=== PATIENT | female | born 2005 | race Hispanic/Latino ===

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

== ENCOUNTER 2024-03-18 01:51 | Emergency (ER) | payer OTHER ==
--- OUTSIDE RECORDS SUMMARY | 2024-03-18 01:55 | XMS REPORT | Continuity of Care Document ---
Author Name Unknown Address [address] [facility] [address] [place] [address] [facility] Address [address] [facility] [address] [place] [address] Care Team Providers Care Banking Attorney Name Role Phone Sharda Becerra CNM Primary Care Physician + Sharda Becerra CNM Attending Clinician [phone] SHARDA BECERRA Attending Clinician Unavaila USAMA Crawford Attending Clinician Unavailable Visit, Andrésshanel Nurse Attending Clinician Unava ilable BRADLEY OCHOA Attending Clinician Unavailable BRADLEY OCHOA Attending Clinician Unavailable BRADLEY OCHOA Attending Clinician Unavailable Ayaz Lambert MD Attending Clinician + Bradley Ochoa MD Attending Clinician [phone] Faculty, Ob Attending Clinician Unavailable Latosha Pereira MD Attending Clinician [phone] Osvaldo Fernandez MD Attending Clinician [phone] Delmi Martínez Attending Clinician + DELMI SERRANO Attending Clinician Unavail able Lab, [facility] Attending Clinician Unavailable Sharda Becerra CNM Attending Clinician [phone] Ultrasound, Ang-Mfm Attending Clinician Unavaila ble Perry Baldwin MD, Primo Attending Clinician + PRIMO YOUNG Attending Clinician Jasmyne Bernard MD Attending Clinician [phone] JASMYNE FAJARDO Attending Clinician Unavailable JASMYNE FAJARDO Attending Clinician Unavailable Doctor Unassigned, [place] Attending Clinician U BRADLEY Steve Admitting Clinician Unavailable Bradley Ochoa MD Admitting Clinician [phone] Payers Payer Name Policy Type Policy Number Effective Date Expirati on Date Source Problems Condition Name Condition Details Condition Category Status Onset Date Resolution Date Last Treatment Date Treating Clinician Comments Source Anemia, Anemia, Disease Active 2023-03 00:00: 00 [facility] acute hospital Status post section Status post section Disease Active 2023-03 00:00: 00 General acute hospital Pre-eclamp noemi, delivered Pre-eclamp noemi, delivered Disease Active 2023-03 0-15 00:00: 00 [facility] acute hospital Elevated blood pressure reading without diagnosis of hypertensi on Elevated blood pressure reading without diagnosis of hypertensi on Disease Resolve d 2023-03 0-15 00:00: 00 2024-02-06 00:00:00 2024-02-06 09:22:53 General acute hospital 36 weeks gestation of 36 weeks gestation of Disease Resolve d 2023-03 0-15 00:00: 00 2024-02-06 00:00:00 2024-02-06 09:22:56 General acute hospital Elevated blood pressure affecting in third trimester, antepartum Elevated blood pressure affecting in third trimester, antepartum Disease Resolve d 2023-03 0-15 00:00: 00 2024-02-06 00:00:00 2024-02-06 09:22:58 General acute hospital Abnormal maternal glucose tolerance, antepartum Abnormal maternal glucose tolerance, antepartum Disease Resolve d 2023-0 8-08 00:00: 00 2024-02-06 00:00:00 2024-02-06 09:22:52 General acute hospital Heartburn during in second trimester Heartburn during in second trimester Disease Resolve d 8-07 00:00: 00 2024-02-06 00:00:00 2024-02-06 09:22:49 General acute hospital Blood product declined Blood product declined Disease Resolve d 8-07 00:00: 00 2024-02-06 00:00:00 2024-02-06 09:22:51 General acute hospital Obesity affecting Obesity affecting Disease Resolve d 3-08 00:00: 00 2024-02-06 00:00:00 2024-02-06 09:22:47 General acute hospital Splenic laceration Splenic laceration Disease Resolve d 1- 00:00: 00 2023-07-11 00:00:00 2023-07-11 21:15:30 General acute hospital Allergies, Adverse Reactions, Alerts Allergy Name Allergy Type Status Severity Reaction(s) Onset Date Inactive Date Treating Clinician Comments Source NO KNOWN ALLERGIE S Drug Class Active General acute hospital Social History Social Habit Start Date Stop Date Quantity Comments Source ASSERTION 2023-05-15 00:00:00 [facility] Alcoholic beverage intake 2024-02-06 00:00:00 2024-02-06 00:00:00 Ex-drinker (finding) [facility] Alcohol intake 2023-07-11 00:00:00 2023-07-11 00:00:00 Ex-drinker (finding) [facility] Tobacco use and exposure 2023-06-06 00:00:00 2023-06-06 00:00:00 Smokeless tobacco non-user [facility] History of Social function 2023-06-06 00:00:00 2023-06-06 00:00:00 [facility] Sex assigned at 2004 00:00:00 2004 00:00:00 [facility] Smoking Status Start Date Stop Date Source Tobacco smoking consumption unknown [facility] Never smoked tobacco General acute hospital Medications Ordered Medication Name Filled Medication Name Start Date Stop Date Current Medication? Ordering Clinician Indication Dosage Frequency Signature (SIG) Comments Components Source SERTraline (ZOLOFT) 50 mg tablet 2023-03 00:00: 00 03-08 05:59 :00 Yes [id number] Take 1 tablet by mouth daily for 4 days, THEN 2 tablets daily for 26 days. General acute hospital human papillomav vac,9-caitie(P F) (GARDASIL-9 ) syringe 0.5 mL 2023-03 03:23: 35 Yes .5mL 0.5 mL, Intramuscu lar, ONCE-PRIOR TO DISCHARGE, 1 dose, Starting on 01/18/24 at 2223, Until Discontinu ed, Routine, Give vaccine prior to discharge General acute hospital flu vac ts 2023(6 ms up)CD(PF) (FLUCELVAX TRI (PF)) IM injection 0.5 mL 2023-03 03:23: 24 Yes .5mL 0.5 mL, Intramuscu lar, ONCE-PRIOR TO DISCHARGE, 1 dose, Starting on 01/18/24 at 2223, Until Discontinu ed, Routine, Give vaccine prior to discharge General acute hospital [id number] fum-folic 27 mg iron- 1 mg folic tablet 2023-03 00:00: 00 Yes [id number] 1{tbl} Take 1 tablet by mouth in the morning. [facility] acute hospital docusate 100 mg capsule 2023-03 00:00: 00 Yes [id number] 200mg Take 2 capsules by mouth once daily as needed for Constipati on. General acute hospital ferrous sulfate 325 mg (65 mg iron) tablet 2023-03 00:00: 00 Yes [id number] 325mg Take 1 tablet by mouth in the morning. [facility] acute hospital ibuprofen 800 mg tablet 2023-03 00:00: 00 Yes [id number] 800mg Take 1 tablet by mouth every 8 (eight) hours as needed (pain). Take with food or milk. [facility] acute hospital acetaminoph en 500 mg tablet 2023-03 00:00: 00 Yes [id number] 1000mg Take 2 tablets by mouth every 8 (eight) hours as needed for Pain. [facility] acute hospital oxyCODONE 5 mg immediate release tablet 2023-03 00:00: 00 01-26 04:59 :00 Yes [id number] 5mg Take 1 tablet by mouth every 6 (six) hours as needed (pain) for up to 7 days. Indication s: acute pain General acute hospital docusate (COLACE) capsule 200 mg 2023-03 14:00: 00 01-18 19:50 :03 No 200mg 200 mg, Oral, DAILY, First dose on Fri01/17/24 at 0900, Until Discontinu ed, Routine [facility] simethicone (GAS RELIEF (SIMETHICON E)) chewable tablet 160 mg 2023-03 01:00: 00 01-18 19:50 :03 No 160mg 160 mg, Oral, TID, First dose on Fri01/16/24 at 2000, Until Discontinu ed, Routine [facility] ibuprofen (IBU) tablet 800 mg 2023-03 23:30: 00 01-18 19:50 :03 No 800mg 800 mg, Oral, Q8HA1, First dose on Fri01/16/24 at 1830, Until Discontinu ed, Routine [facility] acute hospital acetaminoph en (TYLENOL) tablet 1,000 mg 2023-03 21:30: 00 01-18 19:50 :03 No 1000mg 1,000 mg, Oral, Q8H, First dose on Fri01/16/24 at 1630, Until Discontinu ed, Routine [facility] rho(D) immune globulin (RHOPHYLAC) injection 300 mcg 2023-03 21:17: 08 01-18 19:50 :03 No 300ug [facility] acute hospital oxyCODONE immediate release tablet 5 mg 2023-03 21:17: 03 01-18 19:50 :03 No 5mg 5 mg, Oral, Q6HPRN, Starting on Fri01/16/24 at 1617, Until Fri01/19/24 at 1450, Routine, Pain (scale 7-10), 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 approving Restricted medication : MARY GRACE SCOTT General acute hospital diphenhydrA MINE (BENADRYL) injection 25 mg 2023-03 21:17: 03 01-18 19:50 :03 No 25mg [facility] acute hospital diphenhydrA MINE (BENADRYL) tablet 25 mg 2023-03 21:17: 03 01-18 19:50 :03 No 25mg [facility] acute hospital ondansetron (ZOFRAN (PF)) injection 4 mg 2023-03 21:17: 03 01-18 19:50 :03 No 4mg General acute hospital bisacodyL (DULCOLAX) suppository 10 mg 2023-03 21:17: 03 01-18 19:50 :03 No 10mg [facility] acute hospital magnesium hydroxide (MILK OF MAGNESIA) 400 mg/5 mL suspension 30 mL 2023-03 21:17: 03 01-18 19:50 :03 No 30mL 30 mL, Oral, QDAILYPRN, Starting on Fri01/16/24 at 1617, Until Fri01/19/24 at 1450, Routine, Constipati on General acute hospital lactated ringers IV infusion 1,000 mL 2023-03 21:17: 03 01-18 19:50 :03 No 1000mL [facility] acute hospital naloxone (NARCAN) injection 0.2 mg 2023-03 19:35: 22 Yes .2mg 0.2 mg, Intramuscu lar, Q3HPRN, Starting on Fri01/16/24 at 1435, Until Discontinu ed, Routine, Itching, PACU [facility] acute hospital diphenhydrA MINE (BENADRYL) tablet 25 mg 2023-03 19:35: 22 Yes 25mg 25 mg, Oral, Q4HPRN, Starting on Fri01/16/24 at 1435, Until Discontinu ed, Routine, Itching, PACU [facility] acute hospital ketorolac (TORADOL) injection 30 mg 2023-03 19:35: 21 01-20 04:59 :00 Yes 30mg 30 mg, Slow IV Push, Q6HPRN, 4 doses, Starting on Fri01/16/24 at 1435, Until Fri01/20/24 at 2359, Routine, Pain (scale 1-3), PACU [facility] acute hospital metroNIDAZO LE in NaCl (iso-os) (FLAGYL I.V.) RTU IV infusion 500 mg 2023-03 18:30: 00 01-17 06:15 :39 No 500mg 500 mg, IV Infusion, Q12H ABX, First dose on Fri01/16/24 at 1330, Until Discontinu ed, Administer over 60 Minutes, 100 mL, Reason for Anti-Infec tive: Surgical Prophylaxi s, 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, Duration of therapy: within 24 hours of surgery [facility] acute hospital acetaminoph en (TYLENOL) tablet 1,000 mg 2023-03 03:45: 00 01-15 03:47 :00 No 1000mg 1,000 mg, Oral, ONCE, 1 dose, On Fri01/15/24 at 2245, STAT [facility] acute hospital ropivacaine 0.2 % (NAROPIN (PF)) epidural infusion 2023-03 19:39: 00 Yes Epidural, CONTINUOUS PRN, Starting on Fri01/15/24 at 1439, Until Discontinu ed, Routine, Intra-op [facility] acute hospital oxytocin (PITOCIN) 30 units in NS 500 mL IV infusion 2023-03 19:38: 20 01-15 21:17 :06 No 2mU/min at 2-40 mL/hr, IV Infusion, TITRATE, Starting on Fri01/15/24 at 1438, Until Fri01/16/24 at 1617, PRINCESS General acute hospital lidocaine-e pinephrine (XYLOCAINE W/EPINEPHRI NE) 1.5 %-1:200,000 injection 2023-03 19:33: 00 Yes Epidural, ONCE INTRA PROCEDURE, Starting on Fri01/15/24 at 1433, Until Discontinu ed, Routine, Intra-op [facility] acute hospital lidocaine 1% (XYLOCAINE) 100 mg/10 mL (1 %) injection 2023-03 19:30: 00 Yes Infiltrati on, ONCE INTRA PROCEDURE, Starting on Bonnie 01/15/24 at 1430, Until Discontinu ed, Routine, Intra-op [facility] sodium citrate-cit ruddy acid (BICITRA) 500-334 mg/5 mL solution 30 mL 2023-03 18:38: 08 01-14 19:32 :00 No 30mL 30 mL, Oral, PRE-PROCED URE ONCE, 1 dose, Starting on Bonnie 01/15/24 at 1338, Until Bonnie 01/15/24 at 1432, Routine, Surgery/Pr ocedure [facility] lactated ringers IV infusion 500 mL 2023-03 18:38: 08 01-14 20:04 :39 No 500mL at 999 mL/hr, 500 mL, IV Infusion, PRN - SEE INSTRUCTIO NS, 1 dose, Starting on Bonnie 01/15/24 at 1338, Until Bonnie 01/15/24 at 1504, Routine [facility] morphine (2 mg/mL) injection 4 mg 2023-03 13:15: 00 01-14 12:32 :00 No 4mg 4 mg, Slow IV Push, ONCE, 1 dose, On Bonnie 01/15/24 at 0815, Routine [facility] diphenhydrA MINE (BENADRYL) tablet 25 mg 2023-03 09:15: 00 01-14 08:33 :00 No 25mg 25 mg, Oral, ONCE, 1 dose, On Bonnie 01/15/24 at 0415, Routine [facility] morphine (2 mg/mL) injection 4 mg 2023-03 08:30: 00 01-14 07:39 :00 No 4mg 4 mg, Slow IV Push, ONCE, 1 dose, On Bonnie 01/15/24 at 0330, Routine [facility] sodium citrate-cit ruddy acid (BICITRA) 500-334 mg/5 mL solution 30 mL 2023-03 05:39: 30 01-15 17:17 :00 No 30mL 30 mL, Oral, PRE-PROCED URE ONCE, 1 dose, Starting on Fri01/15/24 at 0039, Until Fri01/16/24 at 1217, Routine, Surgery/Pr ocedure General acute hospital D5W-LR IV infusion 1,000 mL 2023-03 0-17 05:39: 30 01-15 21:17 :06 No 1000mL at 1-125 mL/hr, IV Infusion, TITRATE, Starting on Fri01/15/24 at 0039, Until Fri01/16/24 at 1617, Routine General acute hospital [id number] fum-folic () tablet 1 tablet 2023-03 016 14:00: 00 01-15 21:17 :06 No 1{tbl} 1 tablet, Oral, DAILY, First dose on Fri01/14/24 at 0900, Until Discontinu ed, Routine [facility] acute hospital acetaminoph en (TYLENOL) tablet 1,000 mg 2023-03 015 21:44: 49 01-15 21:17 :06 No 1000mg 1,000 mg, Oral, Q6HPRN, Starting on Fri01/13/24 at 1644, Until Fri01/16/24 at 1617, Routine, Pain (scale 1-3) General acute hospital PNV 67-iron ps-folate no.1-dha (VITAFOL ULTRA) 29 mg iron- 1 mg-200 mg Cap 8-20 00:00: 00 Yes [id number] 1{capsu le} Take 1 capsule by mouth in the morning. General acute hospital PNV 67-iron ps-folate no.1-dha (VITAFOL ULTRA) 29 mg iron- 1 mg-200 mg Cap 8-07 00:00: 00 11-17 00:00 :00 No [id number] 1{capsu le} Take 1 capsule by mouth in the morning. General acute hospital famotidine (PEPCID) 20 mg tablet 5-31 00:00: 00 Yes [id number] 20mg Take 1 tablet by mouth in the morning and 1 tablet in the evening. [facility] acute hospital Immunizations Ordered Immunization Name Filled Immunization Name Date Status Comments Source TDAP 2023-11-18 00:00:[address] [facility] TDAP 2023-11-18 00:00:[address] [facility] Meningococcal Oligosaccharide (groups A, C, Y and W-135) conjugate vaccine (MCV4O) 2022-06-21 00:00:00 Completed HPV9 2018-02-02 00:00:00 Completed TDAP 2015-12-19 00:00:00 Completed Influenza Virus Vaccine Quad .5 mL IM 6+ MO (FLUZONE/FLULAVAL/FLU ARIX) 2015-12-19 00:00:00 Completed HPV 2015-12-19 00:00:00 Completed Meningococcal Polysaccharide (groups A, C, Y and W-135) conjugate vaccine (MCV4P) 2015-12-19 00:00:00 Completed Influenza Virus Vaccine Quad .5 mL IM 6+ MO (FLUZONE/FLULAVAL/FLU ARIX) 2015-05-17 00:00:00 Completed DTaP, Unspecified Formulation 2008-09-08 00:00:00 Completed HEPATITIS A 2008-09-08 00:00:00 Completed MMR 2008-09-08 00:00:00 Completed IPV 2008-09-08 00:00:00 Completed Varicella (varivax)(chicken pox) 2008-09-08 00:00:00 Completed DTaP, Unspecified Formulation 2005-09-23 00:00:00 Completed HEPATITIS A 2005-09-23 00:00:00 Completed IPV 2005-09-23 00:00:00 Completed Pneumococcal 7 Conjugate, PCV7 (Prevnar7) 2005-09-03 00:00:00 Completed HIB 4 Dose Schedule 2005-06-24 00:00:00 Completed MMR 2005-06-24 00:00:00 Completed Varicella (varivax)(chicken pox) 2005-06-24 00:00:00 Completed Pediarix (dtap/hep B/ipv) 2005-01-01 00:00:00 Completed HIB 4 Dose Schedule 2005-01-01 00:00:00 Completed Pneumococcal 7 Conjugate, PCV7 (Prevnar7) 2005-01-01 00:00:00 Completed Pediarix (dtap/hep B/ipv) 2004 00:00:00 Completed HIB 4 Dose Schedule 2004 00:00:00 Completed Pneumococcal 7 Conjugate, PCV7 (Prevnar7) 2004 00:00:00 Completed Pediarix (dtap/hep B/ipv) 2004 00:00:00 Completed HIB 4 Dose Schedule 2004 00:00:00 Completed Pneumococcal 7 Conjugate, PCV7 (Prevnar7) 2004 00:00:00 Completed Hep B, Adol or Pedi Dosage 2004 00:00:00 Completed TDAP Unknown Completed [facility] TDAP Unknown Completed [facility] TDAP Unknown Completed [facility] Vital Signs Vital Name Observation Time Observation Value Comments S ource Systolic blood pressure 2024-02-06 15:45:00 128 mm[Hg] [facility] Diastolic blood pressure 2024-02-06 15:45:00 100 mm[Hg] [facility] Heart rate 2024-02-06 15:41:00 84 /min [facility] Body temperature 2024-02-06 15:41:[address] [facility] Respiratory rate 2024-02-06 15:41:00 18 /min [facility] Body height 2024-02-06 15:41:00 154.9 cm [facility] Body weight 2024-02-06 15:41:00 87.232 kg [facility] BMI 2024-02-06 15:41:00 36.34 kg/m2 [facility] Systolic blood pressure 2024-01-22 17:58:00 140 mm[Hg] Manual [facility] Diastolic blood pressure 2024-01-22 17:58:00 90 mm[Hg] Manual [facility] Heart rate 2024-01-22 17:54:00 100 /min [facility] Body temperature 2024-01-22 17:54:[address] [facility] Respiratory rate 2024-01-22 17:54:00 17 /min [facility] Body height 2024-01-22 17:54:00 154.9 cm [facility] Body weight 2024-01-22 17:54:00 86.864 kg [facility] BMI 2024-01-22 17:54:00 36.18 kg/m2 [facility] Systolic blood pressure 2024-01-19 16:36:00 118 mm[Hg] [facility] Diastolic blood pressure 2024-01-19 16:36:00 74 mm[Hg] [facility] Heart rate 2024-01-19 16:36:00 98 /min [facility] Body temperature 2024-01-19 16:36:[address] [facility] Respiratory rate 2024-01-19 16:36:00 20 /min [facility] Oxygen saturation in Arterial blood by Pulse oximetry 2024-01-19 16:36:00 97 /min [facility] Body height 2024-01-13 20:39:00 154.9 cm [facility] Body weight 2024-01-13 20:39:00 96.48 kg [facility] BMI 2024-01-13 20:39:00 40.19 kg/m2 [facility] Systolic blood pressure 2024-01-16 20:30:00 145 mm[Hg] [facility] Diastolic blood pressure 2024-01-16 20:30:00 98 mm[Hg] [facility] Heart rate 2024-01-16 20:30:00 96 /min [facility] Body temperature 2024-01-16 20:30:[address] [facility] Respiratory rate 2024-01-16 20:30:00 20 /min [facility] Oxygen saturation in Arterial blood by Pulse oximetry 2024-01-16 20:30:00 98 /min [facility] Body height 2024-01-13 20:39:00 154.9 cm [facility] Body weight 2024-01-13 20:39:00 96.48 kg [facility] BMI 2024-01-13 20:39:00 40.19 kg/m2 [facility] Systolic blood pressure 2024-01-13 16:13:00 144 mm[Hg] [facility] Diastolic blood pressure 2024-01-13 16:13:00 90 mm[Hg] [facility] Heart rate 2024-01-13 16:08:00 91 /min [facility] Body temperature 2024-01-13 16:08:[address] [facility] Respiratory rate 2024-01-13 16:08:00 18 /min [facility] Body height 2024-01-13 16:08:00 154.9 cm [facility] Body weight 2024-01-13 16:08:00 95.709 kg [facility] BMI 2024-01-13 16:08:00 39.87 kg/m2 [facility] Systolic blood pressure 2023-12-30 15:56:00 138 mm[Hg] [facility] Diastolic blood pressure 2023-12-30 15:56:00 82 mm[Hg] [facility] Heart rate 2023-12-30 15:56:00 92 /min [facility] Body temperature 2023-12-30 15:56:[address] [facility] Respiratory rate 2023-12-30 15:56:00 18 /min [facility] Body height 2023-12-30 15:56:00 154.9 cm [facility] Body weight 2023-12-30 15:56:00 93.072 kg [facility] BMI 2023-12-30 15:56:00 38.77 kg/m2 [facility] Systolic blood pressure 2023-12-16 15:02:00 128 mm[Hg] [facility] Diastolic blood pressure 2023-12-16 15:02:00 89 mm[Hg] [facility] Heart rate 2023-12-16 15:02:00 81 /min [facility] Body temperature 2023-12-16 14:57:[address] [facility] Respiratory rate 2023-12-16 14:57:00 18 /min [facility] Body height 2023-12-16 14:57:00 154.9 cm [facility] Body weight 2023-12-16 14:57:00 84.511 kg [facility] BMI 2023-12-16 14:57:00 35.20 kg/m2 [facility] Systolic blood pressure 2023-12-03 19:45:00 110 mm[Hg] [facility] Diastolic blood pressure 2023-12-03 19:45:00 80 mm[Hg] [facility] Heart rate 2023-12-03 19:36:00 104 /min [facility] Body temperature 2023-12-03 19:36:[address] [facility] Respiratory rate 2023-12-03 19:36:00 19 /min [facility] Body height 2023-12-03 19:36:00 154.9 cm [facility] Body weight 2023-12-03 19:36:00 86.41 kg [facility] BMI 2023-12-03 19:36:00 35.99 kg/m2 [facility] Systolic blood pressure 2023-11-18 16:18:00 132 mm[Hg] [facility] Diastolic blood pressure 2023-11-18 16:18:00 81 mm[Hg] [facility] Heart rate 2023-11-18 16:18:00 101 /min [facility] Body temperature 2023-11-18 16:18:[address] [facility] Respiratory rate 2023-11-18 16:18:00 18 /min [facility] Body height 2023-11-18 16:18:00 154.9 cm [facility] Body weight 2023-11-18 16:18:00 84.641 kg [facility] BMI 2023-11-18 16:18:00 35.26 kg/m2 [facility] Systolic blood pressure 2023-11-04 20:37:00 123 mm[Hg] [facility] Diastolic blood pressure 2023-11-04 20:37:00 82 mm[Hg] [facility] Heart rate 2023-11-04 20:37:00 113 /min [facility] temperature 2023-11-04 20:33:[address] [facility] Respiratory rate 2023-11-04 20:33:00 18 /min [facility] Body height 2023-11-04 20:33:00 154.9 cm [facility] weight 2023-11-04 20:33:00 83.207 kg [facility] BMI 2023-11-04 20:33:00 34.66 kg/m2 [facility] Systolic blood pressure 2023-09-26 15:22:00 133 mm[Hg] [facility] Diastolic blood pressure 2023-09-26 15:22:00 77 mm[Hg] [facility] Heart rate 2023-09-26 15:22:00 87 /min [facility] Body temperature 2023-09-26 15:22:[address] [facility] Respiratory rate 2023-09-26 15:22:00 18 /min [facility] Body height 2023-09-26 15:22:00 154.9 cm [facility] Body weight 2023-09-26 15:22:00 81.421 kg [facility] BMI 2023-09-26 15:22:00 33.92 kg/m2 [facility] Systolic blood pressure 2023-08-29 14:53:00 120 mm[Hg] [facility] Diastolic blood pressure 2023-08-29 14:53:00 80 mm[Hg] [facility] Heart rate 2023-08-29 14:53:00 70 /min [facility] Body temperature 2023-08-29 14:50:[address] [facility] Respiratory rate 2023-08-29 14:50:00 18 /min [facility] Body height 2023-08-29 14:50:00 154.9 cm [facility] Body weight 2023-08-29 14:50:00 82.64 kg [facility] BMI 2023-08-29 14:50:00 34.42 kg/m2 [facility] Systolic blood pressure 2023-08-08 15:13:00 121 mm[Hg] [facility] Diastolic blood pressure 2023-08-08 15:13:00 75 mm[Hg] [facility] Heart rate 2023-08-08 15:13:00 86 /min [facility] Body temperature 2023-08-08 15:13:[address] [facility] Respiratory rate 2023-08-08 15:13:00 16 /min [facility] Body height 2023-08-08 15:13:00 154.9 cm [facility] Body weight 2023-08-08 15:13:00 80.485 kg [facility] BMI 2023-08-08 15:13:00 33.53 kg/m2 [facility] Systolic blood pressure 2023-07-11 15:21:00 119 mm[Hg] [facility] Diastolic blood pressure 2023-07-11 15:21:00 77 mm[Hg] [facility] Heart rate 2023-07-11 15:21:00 85 /min [facility] Body temperature 2023-07-11 15:21:[address] [facility] [facility] Respiratory rate 2023-07-11 15:21:00 16 /min [facility] Body height 2023-07-11 15:21:00 154.9 cm [facility] Body weight 2023-07-11 15:21:00 77.282 kg [facility] BMI 2023-07-11 15:21:00 32.19 kg/m2 [facility] Systolic blood pressure 2023-06-06 14:22:00 124 mm[Hg] [facility] Diastolic blood pressure 2023-06-06 14:22:00 82 mm[Hg] [facility] Heart rate 2023-06-06 14:22:00 83 /min Un[facility] Body temperature 2023-06-06 14:22:[address] [facility] Respiratory rate 2023-06-06 14:22:00 18 /min [facility] Body height 2023-06-06 14:22:00 154.9 cm [facility] Body weight 2023-06-06 14:22:00 77.384 kg [facility] BMI 2023-06-06 14:22:00 32.23 kg/m2 [facility] Body mass index (BMI) [Percentile] Per age and sex 2023-06-06 14:22:00 95.67 % [facility] Procedures Procedure Date / Time Performed Performing Clinician Source CBC WITH DIFF 2024-01-17 09:31:[address] [facility] CBC WITH DIFF 2024-01-17 09:31:[address] [facility] VENOUS CORD GAS 2024-01-16 18:18:[address] [facility] VENOUS CORD GAS 2024-01-16 18:18:[address] [facility] [id number] - [place] ANTEPARTUM CARE DLVR & 2024-01-16 17:20:00 Faculty, Ob [facility] [id number] - [place] OB ANTEPARTUM CARE DLVR & 2024-01-16 17:20:00 Faculty, Ob [facility] CENTRAL NEURAXIAL BLOCK 2024-01-15 19:54:[address] [facility] NON-STRESS TEST 2024-01-14 21:59:[address] [facility] NON-STRESS TEST 2024-01-14 21:59:[address] [facility] HB ABO GROUPING 2024-01-13 21:54:00 Mary Jo Ward [facility] RHO (D) IMMUNE GLOBULIN 2024-01-13 21:54:[address] [facility] HB ABO GROUPING 2024-01-13 21:54:00 Ed Mary Jo [facility] RHO (D) IMMUNE GLOBULIN 2024-01-13 21:54:[address] [facility] SGOT (ASPARTATE AMINO TRANSFER) 2024-01-13 21:12:00 Stone [facility] CREATININE 2024-01-13 21:12:00 Stone [facility] ALANINE AMINO TRANSFERASE(SGPT 2024-01-13 21:12:00 Stone [facility] LACTATE DEHYDROGENASE 2024-01-13 21:12:[address] [facility] URIC ACID 2024-01-13 21:12:00 Stone [facility] CBC WITH DIFF 2024-01-13 21:12:00 Stone [facility] URINALYSIS 2024-01-13 21:12:00 Stone [facility] HEPATITIS B SURFACE ANTIGEN 2024-01-13 21:12:00 Standing Order, [facility] PROTEIN CREAT RATIO URINE RANDOM 2024-01-13 21:12:00 Stone [facility] HIV 1/2 AG-AB WITH REFLEX 2024-01-13 21:12:00 Standing Order, [facility] SYPHILIS IGG/IGM 2024-01-13 21:12:00 Standing Or chase, [facility] SGOT (ASPARTATE AMINO TRANSFER) 2024-01-13 21:12:00 Stone [facility] CREATININE 2024-01-13 21:12:00 Sun [facility] ALANINE AMINO TRANSFERASE(SGPT 2024-01-13 21:12:00 Stone [facility] LACTATE DEHYDROGENASE 2024-01-13 21:12:[address] [facility] URIC ACID 2024-01-13 21:12:00 Stone [facility] CBC WITH DIFF 2024-01-13 21:12:00 Stone, [facility] URINALYSIS 2024-01-13 21:12:00 Stone [facility] HEPATITIS B SURFACE ANTIGEN 2024-01-13 21:12:00 Standing Order, [facility] PROTEIN CREAT RATIO URINE RANDOM 2024-01-13 21:12:00 Stone, [facility] HIV 1/2 AG-AB WITH REFLEX 2024-01-13 21:12:00 Standing Order, Physician [facility] SYPHILIS IGG/IGM 2024-01-13 21:12:00 Standing Or chase, Physician [facility] POCT URINALYSIS 2024-01-13 16:07:[address] [facility] POCT URINALYSIS 2023-12-30 15:57:[address] [facility] POCT URINALYSIS 2023-12-16 15:00:[address] [facility] POCT URINALYSIS 2023-12-03 19:45:[address] [facility] POCT URINALYSIS 2023-11-18 16:20:[address] [facility] TDAP VACCINE, >11 YRS, IM 2023-11-18 16:15:[address] [facility] POCT URINALYSIS 2023-11-04 21:29:[address] [facility] SECOND AND THIRD TRIMESTER ULTRASOUND 2023-09-30 15:35:[address] [facility] POCT URINALYSIS 2023-09-26 15:23:[address] [facility] POCT URINALYSIS 2023-08-29 14:56:[address] [facility] POCT URINALYSIS 2023-08-08 15:51:[address] [facility] FIRST TRIMESTER ULTRASOUND 2023-07-17 16:36:[address] [facility] POCT URINALYSIS 2023-07-11 15:21:[address] [facility] POCT TEST 2023-06-06 14:15:[address] [facility] POCT URINALYSIS W/O SPECIFIC GRAVITY 2023-06-06 14:15:[address] [facility] ASSIGNMENT OF BENEFITS 2023-06-06 14:04:20 Docto r Unassigned, [place] [facility] Encounters Start Date/Time End Date/Time Encounter Type Admission Type Attending Clinicians Care Facility Care Department Encounter ID Source 2024-03-04 00:00:00 2024-03-04 07:00:43 Chandrakant Sharda Becerra [facility] FISH MACHINE FEEDER [facility]ILD [email or web address] 1..840.114 350.1.13.10 4.2.7.2.686 [id number] General acute hospital 2024-01-24 00:00:00 2024-02-28 18:24:24 Patient Secure Sharda Becerra [facility] FISH MACHINE FEEDER [facility] 1..840.114 350.1.13.10 4.2.7.2.686 [id number] General acute hospital 2024-02-17 07:00:00 2024-02-17 07:00:00 Outpatient SHARDA BOLTON [facility] [id number] General acute hospital 2024-02-06 09:00:00 2024-02-06 10:18:37 Outpatient SHARDA BOLTON [facility] [id number] General acute hospital 2024-02-06 09:00:00 2024-02-06 10:18:37 Routine Visit Sharda Becerra [facility] FISH MACHINE FEEDER [facility] CHILD [facility] [[email or web address]] 1..840.114 350.1.13.10 4.2.7.2.686 [id number] General acute hospital 2024-01-22 14:00:00 2024-01-22 14:15:00 Nurse Visit Visit, Pawan-Rm[place]scot Nurse Sharda Becerra Visit, [place] Nurse [email or web address]] 1..840.114 350.1.13.10 4.2.7.2.686 [id number] General acute hospital 2024-01-22 14:00:00 2024-01-22 14:00:00 Outpatient R SHARDA BECERRA [facility] [id number] General acute hospital 2024-01-13 15:07:00 2024-01-19 14:49:00 Inpatient P BRADLEY OCHOA, BRADLEY OCHOA, BRADLEY [facility] KRISTA [id number] General acute hospital 2024-01-13 15:07:00 2024-01-19 14:49:00 Hospital Encounter Aayz Lambert Bradley Díaz [facility] 1.2.840.114 350.1.13.10 4.2.7.2.686 [id number] General acute hospital 2024-01-16 15:20:00 2024-01-16 17:16:00 Surgery Faculty, Ob [facility] ([place]) 1.2.840.114 350.1.13.10 4.2.7.2.686 [id number] General acute hospital 2024-01-15 14:30:00 2024-01-15 14:30:00 Anesthesia Event Latosha Pereira, Osvaldo Barksdale [facility] ([place]) 1.2.840.114 350.1.13.10 4.2.7.2.686 [id number] General acute hospital 2024-01-13 11:00:00 2024-01-13 11:33:27 Outpatient R SHARDA BECERRA [facility] [id number] General acute hospital 2024-01-13 11:00:00 2024-01-13 11:33:27 Routine Visit Sharda Becerra [facility] FISH MACHINE FEEDER [facility] 1.2.840.114 350.1.13.10 4.2.7.2.686 [id number] General acute hospital 2023-12-30 11:00:00 2023-12-30 11:21:36 Outpatient R SHARDA BECERRA [facility] [id number] General acute hospital 2023-12-30 11:00:00 2023-12-30 11:21:36 Routine Visit Sharda Becerra [facility] FISH MACHINE FEEDER [facility] MATERNAL & CHILD [facility] [[email or web address]] 1.2840.114 350.1.13.10 4.2.7.2.686 [id number] General acute hospital 2023-12-16 10:00:00 2023-12-16 10:46:16 Outpatient R SHARDA BECERRA [facility] [id number] General acute hospital 2023-12-16 10:00:00 2023-12-16 10:46:16 Routine Visit Sharda Becerra [facility] FISH MACHINE FEEDER [facility] CHILD [facility] [[email or web address]] 1.840.114 350.1.13.10 4.2.7.2.686 [id number] General acute hospital 2023-12-03 14:15:00 2023-12-03 14:30:00 Routine Visit Delmi Serrano [facility] FISH MACHINE FEEDER [facility] CHILD [facility] [[email or web address]] 1.840.114 350.1.13.10 4.2.7.2.686 [id number] General acute hospital 2023-12-03 14:15:00 2023-12-03 14:15:00 Outpatient R DELMI SERRANO [facility] [id number] General acute hospital 2023-11-18 11:00:00 2023-11-18 11:42:45 Outpatient R SHARDA BECERRA [facility] [id number] General acute hospital 2023-11-18 11:00:00 2023-11-18 11:42:45 Routine Visit Sharda Becerra [facility] FISH MACHINE FEEDER [facility] CHILD [facility] [[email or web address]] 1.840.114 350.1.13.10 4.2.7.2.686 [id number] General acute hospital 2023-11-07 07:45:00 2023-11-07 10:24:13 Game Engineer Visit Lab, Sharda Leong Lab, [facility] FISH MACHINE FEEDER [facility] CHILD [facility] [[email or web address]] ..840.114 350.1.13.10 4.2.7.2.686 [id number] General acute hospital 2023-11-07 07:45:00 2023-11-07 07:45:00 Outpatient R SHARDA BECERRA [facility] [id number] General acute hospital 2023-11-06 00:00:00 2023-11-06 12:53:17 Telephone Sharda Becerra [facility] FISH MACHINE FEEDER [facility] CHILD [facility] [[email or web address]] ..840.114 350.1.13.10 4.2.7.2.686 [id number] General acute hospital 2023-11-05 13:15:00 2023-11-05 14:04:34 Outpatient R SHARDA BECERRA [facility] [id number] General acute hospital 2023-11-05 13:15:00 2023-11-05 14:04:34 Game Engineer Visit Lab, Sharda Leong Lab, [facility] ..840.114 350.1.13.10 4.2.7.2.686 [id number] General acute hospital 2023-11-04 15:30:00 2023-11-04 16:36:47 Outpatient R SHARDA BECERRA [facility] [id number] General acute hospital 2023-11-04 15:30:00 2023-11-04 16:36:47 Routine Visit Sharda Becerra [email or web address]] 1.2.840.114 350.1.13.10 4.2.7.2.686 [id number] General acute hospital 2023-10-29 07:00:00 2023-10-29 07:00:00 Outpatient R GEORGIEPAYAL THOMASNDA [facility] [id number] General acute hospital 2023-10-23 10:30:00 2023-10-23 10:30:00 [id number] acute hospital 2023-10-01 00:00:00 2023-10-01 06:56:58 Case Management DoritarebelMaria [facility] FISH [facility]ACHINE FEEDER [facility] CHILD [email or web address]] 1..840.114 350.1.13.10 4.2.7.2.686 [id number] General acute hospital 2023-09-30 09:45:00 2023-09-30 11:19:25 Game Engineer Visit Ultrasound, [facility] Primo Mir [facility] FISH MACHINE FEEDER [facility] [[email or web address]] 1..840.114 350.1.13.10 4.2.7.2.686 [id number] General acute hospital 2023-09-30 09:45:00 2023-09-30 11:19:25 Outpatient P PRIMO MIR [facility] [id number] General acute hospital 2023-09-26 10:15:00 2023-09-26 10:40:53 [facility] [id number] [facility] acute hospital 2023-09-26 10:15:00 2023-09-26 10:40:53 Routine Visit [facility] FISH MACHINE FEEDER [facility] CHILD [facility] [[email or web address]] 1.2.840.114 350.1.13.10 4.2.7.2.686 [id number] General acute hospital 2023-08-29 09:45:00 2023-08-29 10:27:04 Outpatient R SHARDA BECERRA [facility] [id number] General acute hospital 2023-08-29 09:45:00 2023-08-29 10:27:04 Routine Visit GeorgieMaria Elena thomasa Jessica [facility] FISH MACHINE FEEDER [facility] CHILD [facility] [[email or web address]] 1.2.840.114 350.1.13.10 4.2.7.2.686 [id number] General acute hospital 2023-08-08 10:15:00 2023-08-08 10:40:34 Outpatient R GEORGIESHARDA THOMAS [facility] [id number] General acute hospital 2023-08-08 10:15:00 2023-08-08 10:40:34 Routine Visit GeorgieMaria Elena thomasUniversity [facility] FISH MACHINE FEEDER [facility] CHILD [email or web address]] 1.2840.114 350.1.13.10 4.2.7.2.686 [id number] General acute hospital 2023-07-17 11:30:00 2023-07-17 11:30:00 Game Engineer Visit Ultrasound, Jasmyne Maxwell [email or web address]] 1.2840.114 350.1.13.10 4.2.7.2.686 [id number] General acute hospital 2023-07-17 11:30:00 2023-07-17 11:26:28 Outpatient JASMYNE HADDAD SHANNON [facility] [id number] General acute hospital 2023-07-17 00:00:00 2023-07-17 00:00:00 Case Management Doritarebel [facility]University [email or web address]] 1.2840.114 350.1.13.10 4.2.7.2.686 [id number] General acute hospital 2023-07-11 09:30:00 2023-07-11 10:34:04 Outpatient R SHARDA BECERRA [facility] [id number] General acute hospital 2023-07-11 09:30:00 2023-07-11 10:34:04 Routine Visit Georgiemartha Sharda Aldana [facility] FISH MACHINE FEEDER [facility] CHILD [facility] [[email or web address]] 1..114 350.1.13.10 4.2.7.2.686 [id number] General acute hospital 2023-07-04 08:45:00 2023-07-04 08:45:00 Outpatient R GEORGIEMARTHA SHARDA [facility] [id number] General acute hospital 2023-06-16 00:00:00 2023-06-16 00:00:00 Telephone Georgiemartha Sharda Aldana [facility] FISH MACHINE FEEDER [facility] [[email or web address]] 1.114 350.1.13.10 4.2.7.2.686 [id number] General acute hospital 2023-06-06 08:15:00 2023-06-06 08:57:57 Outpatient R HERNAN SHARDA [facility] [id number] General acute hospital 2023-06-06 08:15:00 2023-06-06 08:57:57 Initial Visit Georgiemartha Sharda Aldana [facility] FISH MACHINE FEEDER [facility] CHILD [facility] [[email or web address]] ..114 350.1.13.10 4.2.7.2.686 [id number] General acute hospital 2023-06-06 08:15:00 2023-06-06 08:57:57 Outpatient R GEORGIEMARTHA SHARDA [facility] [id number] General acute hospital 2023-06-06 00:00:00 2023-06-06 00:00:00 Orders Only Doctor Unassigned, [place] [facility] ..114 350.1.13.10 4.2.7.2.686 [id number] General acute hospital 2022-11-16 10:42:52 2022-11-16 10:42:52 Outpatient [facility] [id number] 2022-11-01 08:51:57 2022-11-01 08:51:57 Outpatient [facility] [id number] Kaur Results Test Description Test Time Test Comments Results Result Co mments Source [facility] IMMUNE [id number] 21:22:05* Test Item Value Reference Range Interpretation Comme nts RHIG CANDIDATE? (test code = 5188) No- see comment Patient is not a candidate for RhIg- Patient is Rh Positive.Performed at [facility] Laboratory Services - [facility] Blood [address] [place] [address] [id number] Free: [phone] No. [id number] [facility] Cord [id number] 18:41:22* Test Item Value Reference Range Interpretation Comme nts VENOUS BASE EXCESS, CORD (te st code = 0126803730) -0.8 mEq/L VENOUS PH, CORD (test code = 0352494102) 7.40 7.25-7.45 VENOUS PC02, CORD (test code = 8174703488) 39 27-49 VENOUS PO2, CORD (test code = 2249394322) 26 17-41 VENOUS BICARBONATE, CORD (te st code = 7707739431) 24 12- [facility] Cord [id number] 18:41:22* Test Item Value Reference Range Interpretation Comme nts VENOUS BASE EXCESS, CORD (te st code = 1679276008) -0.8 mEq/L VENOUS PH, CORD (test code = 8823374901) 7.40 7.25-7.45 VENOUS PC02, CORD (test code = 2835045159) 39 27-49 VENOUS PO2, CORD (test code = 8392485178) 26 17-41 VENOUS BICARBONATE, CORD (te st code = 2902255239) 24 12[facility] [id number] 19:54:00 Latosha Pereira MD ? ? 01/15/2024 ?2:55 PM Central Neuraxial Block Date/Time: 01/15/2024 2:54 PM Performed by: Latosha Pereira MDAuthorized by: Ronak Mcconnell MD ?Patient Location: OBReasonfor Block: Labor analgesia, OB request, Patient request, Surgical anesthesia and Post-op pain managementStaff: ?Anesthesiologist: Ronak Mcconnell MD ?Resident/AEROSPACE TECHNICIAN: Latosha Pereira MD ?Performedby: resident/CRNAPreanesthetic Checklist: patient identified, IV checked, risks and benefits explained, monitors and equipment checked, timeout performed, pre-op evaluation, surgical consent, site marked, ob/surgical consent approval, ob/surgical consent verified and anesthesia consentProcedure: ?Type of Neuraxial: Epidural ?Epidural Description: 1st attempt ? Sterility Prep cap, drape, gloves, hand hygiene and mask ? ?Sedation Level no sedation ?Patient Position: sitting ?Prep: Betadine ? ?Monitoring: threat monitoring analyst / EKG, heart rate / toco, heart rate, NIBP and continuous pulse ox ?Location: lumbar (1-5) ?Lumbar: L3-L4 ?Approach: midline ? ?Technique: single shot ?Guidance with: landmark technique}Epidural/Spinal [place] and/or Catheter: ?Epidural/Spinal Kit: BBraun ?Needle Type:Tuohy ?Needle Gauge: 17 G ?Needle Length: 3.5 in (8.89 cm) ?Needle Insertion Depth: 6 ?Catheter Type: multiport ? ?Catheter Size: 19 G ? ?Catheter at Skin Depth: 11 ?Number of Attempts: 1 ?Test Dose:lidocaine 1.5% with epinephrine 1-to-200,000 and negative ? ?Dose: 3 cc ? ?Catheter Securement Method: clear occlusive dressing, surgical tape and liquid medical adhesiveAssessment: ?Block Outcome: afull evaluation is pending, no apparent complications and patient tolerated procedure well ? ?Procedure Assessment: patient tolerated procedure well with no complicationsNotes: ? Attempt by resident x 1. ?Patient identified. Time out done. Prep x3 and drape in sterile fashion. Infiltrated skin with1% lidocaine. Needle insertion depth at 6 cm, catheter depth at skin 11 cm. Catheter aspiration negative x3, test dose negative, sterile dressing applied. No apparent complications. Patient instructed on fall precautions. Pump Settings:12 mL/hr Bolus: 4 mL Lockout: 15 min Latosha Pereira MD, PGY-4Dept. Mnvpybmficidlo06/17/2024 2:54 PMUnTexas [facility] HospitalType and Screen - ONCE [id number] 22:05:00* Test Item Value Reference Range Interpretation Comme nts ABO & RH (test code = 20) A POSITIVE IAT (test code = 1185) Negative [facility] [id number] 22:05:00* Test Item Value Reference Range Interpretation Comme nts ABO & RH (test code = 20) A POSITIVE IAT (test code = 1185) Negative [facility] W SPECIFIC [id number] 16:07:00* Test Item Value Reference Range Interpretation Comme nts POCT U SP GRAV (test code = 3255) . 1.005-1.025 POCT PH U (test code = 3254) 6 mg/dl 5-8 POCT U LEUK EST (test code = 3263) Neg Negative - Negative POCT U NIT (test code = 3262) Neg Negative - Negati ve POCT U PROT (test code = 3259) 2+ Negative - Negat darline POCT U GLU (test code = 3256) Nml Negative - Negati ve POCT U KETONE (test code = 3258) None Negative - Neg ative POCT U UROBILI (test code = 3260) . 0.2-1 POCT U BILI (test code = 3261) . Negative - Negat darline POCT U BLD (test code = 3257) Trace Negative - Negati ve POCT U COLOR (test code = 3266) . POCT U APPEAR (test code = 3267) . [facility] W SPECIFIC [id number] 15:57:00* Test Item Value Reference Range Interpretation Comme nts POCT U SP GRAV (test code = 3255) . 1.005-1.025 POCT PH U (test code = 3254) 6 mg/dl 5-8 POCT U LEUK EST (test code = 3263) Trace Negative - Negative POCT U NIT (test code = 3262) Neg Negative - Negati ve POCT U PROT (test code = 3259) Trace Negative - Negat darline POCT U GLU (test code = 3256) Nml Negative - Negati ve POCT U KETONE (test code = 3258) None Negative - Neg ative POCT U UROBILI (test code = 3260) . 0.2-1 POCT U BILI (test code = 3261) . Negative - Negat darline POCT U BLD (test code = 3257) Trace Negative - Negati ve POCT U COLOR (test code = 3266) . POCT U APPEAR (test code = 3267) . [facility] URINALYSIS W SPECIFIC [id number] 15:00:00* Test Item Value Reference Range Interpretation Comme nts POCT U SP GRAV (test code = 3255) . 1.005-1.025 POCT PH U (test code = 3254) 7 mg/dl 5-8 POCT U LEUK EST (test [...] POCT U APPEAR (test code = 3267) .... [facility] URINALYSIS W SPECIFIC [id number] 19:45:00* Test Item Value Reference Range Interpretation Comme [...] POCT U GLU (test code = 3256) 50 Negative - Negati ve POCT U KETONE [...] POCT U APPEAR (test code = 3267) [facility] URINALYSIS W SPECIFIC [id number] 16:21:00* Test Item Value Reference Range Interpretation Comme nts POCT U SP GRAV (test code = 3255) . 1.005-1.025 POCT PH U (test code = 3254) 7 mg/dl 5-8 POCT U LEUK EST (test [...] neg Negative - Neg ative POCT U UROBILI (test code = 3260) . 0.2-1 POCT U BILI (test code = 3261) . Negative - Negat darline POCT U BLD (test code = 3257) neg Negative - Negati ve POCT U COLOR (test code = 3266) . POCT U APPEAR (test code = 3267) . [facility] URINALYSIS W SPECIFIC [id number] 21:29:00* Test Item Value Reference Range Interpretation Comme nts POCT U SP GRAV (test code = 3255) . 1.005-1.025 POCT PH U (test code = 3254) 6 mg/dl 5-8 POCT U LEUK EST (test code = 3263) Trace Negative - Negative POCT U NIT (test code = 3262) Neg Negative - Negati ve POCT U PROT (test code = 3259) 1+ Negative - Negat darline POCT U GLU (test code = 3256) Nml Negative - Negati ve POCT U KETONE (test code = 3258) None Negative - Neg ative POCT U UROBILI (test code = 3260) . 0.2-1 POCT U BILI (test code = 3261) . Negative - Negat darline POCT U BLD (test code = 3257) Trace Negative - Negati ve POCT U COLOR (test code = 3266) . POCT U APPEAR (test code = 3267) ... [facility] URINALYSIS W SPECIFIC [id number] 15:23:00* Test Item Value Reference Range Interpretation Comme nts POCT U SP GRAV (test code = 3255) . 1.005-1.025 POCT PH U (test code = 3254) 7 mg/dl 5-8 POCT U LEUK EST (test code = 3263) Neg Negative - Negative POCT U NIT (test code = 3262) Neg Negative - Negati ve POCT U PROT (test code = 3259) Trace Negative - Negat darline POCT U GLU (test code = 3256) Nml Negative - Negati ve POCT U KETONE (test code = 3258) None Negative - Neg ative POCT U UROBILI (test code = 3260) . 0.2-1 POCT U BILI (test code = 3261) . Negative - Negat darline POCT U BLD (test code = 3257) Trace Negative - Negati ve POCT U COLOR (test code = 3266) . POCT U APPEAR (test code = 3267) . [facility] URINALYSIS W SPECIFIC [id number] 14:57:00* Test Item Value Reference Range Interpretation Comme nts POCT U SP GRAV (test code = 3255) . 1.005-1.025 POCT PH U (test code = 3254) 7 mg/dl 5-8 POCT U LEUK EST (test code = 3263) Neg Negative - Negative POCT U NIT (test code = 3262) Neg Negative - Negati ve POCT U PROT (test code = 3259) Trace Negative - Negat darline POCT U GLU (test code = 3256) Nml Negative - Negati ve POCT U KETONE (test code = 3258) 1+ Negative - Neg ative POCT U UROBILI (test code = 3260) . 0.2-1 POCT U BILI (test code = 3261) . Negative - Negat darline POCT U BLD (test code = 3257) Trace Negative - Negati ve POCT U COLOR (test code = 3266) . POCT U APPEAR (test code = 3267) [facility] URINALYSIS W SPECIFIC [id number] 15:52:00* Test Item Value Reference Range Interpretation [...] U APPEAR (test code = 3267) . [facility] URINALYSIS W SPECIFIC [id number] 15:22:00* Test Item Value Reference Range Interpretation [...] POCT [facility] APPE[facility] (test code = 3267[facility] [id number] 14:16:00* Test Item Value Reference Range Interpretation [...] = 3257) neg Negative - Negati ve [facility] Specific [id number] 14:16:00* Test Item Value Reference Range Interpretation [...] = 3257) neg Negative - Negati ve [facility] [id number] 14:15:00* Test Item Value Reference Range Interpretation Comme nts POCT PREG (test code = 1605) Positive On board controls acceptable with C Line (test code = 3574) Yes POCT PREG LOT # (test code = 3575) POCT PREG TEST DATE ( test code = 3576) [facility] [id number] 14:15:00* Test Item Value Reference Range Interpretation Comme nts POCT PREG (test code = 1605) Positive On board controls acceptable with C Line (test code = 3574) Yes POCT PREG LOT # (test code = 3575) POCT PREG TEST DATE ( test code = 3576) [facility] History and Physical Notes Date/Time Note Provider Source 2024-01-13 15:16:15 TRIAGE HISTORY & PHYSICAL IDENTIFYING DATA Alvaro Caceres is 18 year old, /White, 36w5d, female with KYARA 02/05/2024, by Last Menstrual Period. : 2005 Primary Care Physician: Sharda Becerra CHIEF COMPLAINT Sent from clinic HISTORY OF PRESENT ILLNESS 18 year old @ 36w5d d/u (11) presents from clinic for evaluation of elevated blood pressure. Pt denies history of elevated blood pressure outside of . Denies headache, visual changes, n/v, RUQ pain. PT reports irregular ctxs. Denies lof, vb. Reports good movt. PAST OBSTETRIC HISTORY OB History Para Term AB Living 1 0 0 0 0 SAB IAB Ectopic Multiple Live Births 0 0 0 # Outcome Date GA Lbr Charlie/2nd Weight Sex Type Anes PTL Lv 1 Current PAST MEDICAL HISTORY Problem list: Patient Active Problem List Diagnosis Date Noted Elevated blood pressure reading without diagnosis of hypertension 01/13/2024 36 weeks gestation of 01/13/2024 Elevated blood pressure affecting in third trimester, antepartum 01/13/2024 Abnormal maternal glucose tolerance, antepartum 11/06/2023 Heartburn during in second trimester 11/05/2023 Blood product declined 11/05/2023 Obesity affecting 06/06/2023 Operations: No past surgical history on file. No past medical history on file. CURRENT HEALTH STATUS Medications: No current facility-administered medications for this encounter. Allergies and drug reactions: Patient has no known allergies. HOME MEDICATIONS Medications Prior to Admission Medication Sig Dispense Refill Last Dose PNV 67-iron ps-folate no.1-dha (VITAFOL ULTRA) 29 mg iron- 1 mg-200 mg Cap Take 1 capsule by mouth in the morning. 60 capsule 6 famotidine (PEPCID) 20 mg tablet Take 1 tablet by mouth in the morning and 1 tablet in the evening. 60 tablet 6 SOCIAL HISTORY Tobacco History: Social History Tobacco Use Smoking Status Never Smokeless Tobacco Never Drug History: Social History Substance and Sexual Activity Drug Use Not Currently Alcohol History: Social History Substance and Sexual Activity Alcohol Use Not Currently FAMILY HISTORY Family History Problem Relation Age of Onset No Significant Medical Problems Mother No Significant Medical Problems Father No Significant Medical Problems Sister No Significant Medical Problems Maternal Grandmother No Significant Medical Problems Maternal Grandfather No Significant Medical Problems Paternal Grandmother No Significant Medical Problems Paternal Grandfather REVIEW OF SYSTEMS General: negative Constitutional: negative Eyes: negative ENT/Mouth: negative Cardiovascular: negative Respiratory: negative Gastrointestinal:negative Genitourinary: contractions Musculoskeletal: negative Skin/breast: negative Neurological: negative Psychiatric: negative Endocrine: negative Hemat/Lymph: negative Allergic/Immuno:none VITAL SIGNS Vitals: 01/13/24 1539 01/13/24 1600 BP: (!) 154/90 Pulse: 93 90 Resp: 20 16 Temp: 36.8 ?C (98.2 ?F) 36.7 ?C (98 ?F) TempSrc: Axillary Axillary SpO2: 98% 100% PHYSICAL EXAMINATIONS General: patient alert and in no acute distress HEENT: symmetric, negative for masses Lungs: unlabored breathing Cardiology: peripheral pulses intact and regular Abdomen: soft, non-tender, non-distended, no liver, spleen or abnormal masses palpated and Gravid Extremities: no clubbing, cyanosis, or edema Neuro: patient moving all extremities, no facial droop : SVE: REVIEW OF LABORATORY, PATHOLOGY, AND RADIOLOGY DATA Lab results: Type & Screen HIV Hep B Syphilis Chlamydia ABO & RH Date Value Ref Range Status 06/06/2023 A POSITIVE Final No results found for: "HIVMULTIPLEX" No components found for: "HBSHBSAG" Syphilis IgG/IgM Date Value Ref Range Status 12/03/2023 Non-reactive Non-reactive Final C. trachomatis Nucleic Acid Date Value Ref Range Status 06/06/2023 Negative Negative Final IAT Date Value Ref Range Status 06/06/2023 Negative Final Varicella Rubella Glucose Group B Strep CBC VZV IgG antibody Date Value Ref Range Status 06/06/2023 Positive Negative Final Rubella screen IgG Date Value Ref Range Status 06/06/2023 Positive Negative Final GLUC 1 HR Date Value Ref Range Status 11/07/2023 154 120 - 170 mg/dL Final No results found for: "CGBS" HGB Date Value Ref Range Status 01/13/2024 10.8 (L) 11.6 - 15.0 g/dL Final HCT Date Value Ref Range Status 01/13/2024 33.2 (L) 35.7 - 45.2 % Final PLT Date Value Ref Range Status 01/13/2024 265 166 - 358 10*3/?L Final Active Hospital Problems Diagnosis Date Noted 36 weeks gestation of 01/13/2024 Elevated blood pressure affecting in third trimester, antepartum 01/13/2024 Obesity affecting 06/06/2023 Resolved Hospital Problems No resolved problems to display. Present on Admission: Obesity affecting 36 weeks gestation of Elevated blood pressure affecting in third trimester, antepartum ASSESSMENT AND PLAN Alvaro Caceres is a 18 year old at 36w5d by d/u (11) who presents with elevated blood pressure. Elevated blood pressure - BP in clinic 159/104, 144/90 - multiple mild range BPs with normal rechecks at 17w, 26w, 30w, 32w - BP in triage 154/90 - denies headache, visual changes, n/v, RUQ pain - Plan: serial bp's, labs Antepartum course reviewed - 1 h 174, 3 hr nml, sero neg, Ri, VZVi, A+/neg, GBS unk, Pap underage - H/H, plt: 11.4 / 35.9, 286 on 11/05/23 - PP contraception: undecided - [facility] Fetus - Presentation on admission: cephalic, DVP6.5cm, EFW 3394g (86%ile) - anterior placenta - FHT reactive - Normal anatomy scan Placenta Accreta Screening Prior ? : No Prior Uterine Surgery?: No Placenta low lying/previa in current ? : No Screening outcome: Negative screening. PLAN: serial bp's, labs Mary Jo Ward APRN, NONI- Informed consent discussed with the patient, including: condition, proposed care, treatments and services, alternative forms of treatment, and risks of no treatment. Details discussed around the procedures to be used, and the risks and hazards involved, potential benefits, and side effects of the patient s proposed care, treatment, and services; the likelihood of the patient achieving his or her goals; and any potential problems that might occur during recuperation. Reasonable alternative also discussed with the patient s proposed care, treatment, and services. The discussion encompasses risks, benefits, and side effects related to the alternative and risks related to not receiving the proposed care, treatment, and services. Associated attestation - Ayaz Lambert MD - 01/13/2024 4:32 PM CDT I was L&D faculty on 01/13/2024 and agree with H&P below. I discussed the plan of care with the residents. Ayaz Lambert MD [facility] - Health Procedure Notes Date/Time Note Provider Source 2024-01-15 14:54:48 Associated Order(s): Central Neuraxial Block Central Neuraxial Block Date/Time: 01/15/2024 2:54 PM Performed by: Latosha Pereira MD Authorized by: Ronak Mcconnell MD Patient Location: OB Reason for Block: Labor analgesia, OB request, Patient request, Surgical anesthesia and Post-op pain management Staff: Anesthesiologist: Ronak Mcconnell MD Resident/AEROSPACE TECHNICIAN: Latosha Pereira MD Performed by: resident/AEROSPACE TECHNICIAN Preanesthetic Checklist: patient identified, IV checked, risks and benefits explained, monitors and equipment checked, timeout performed, pre-op evaluation, surgical consent, site marked, ob/surgical consent approval, ob/surgical consent verified and anesthesia consent Procedure: Type of Neuraxial: Epidural Epidural Description: 1st attempt Sterility Prep cap, drape, gloves, hand hygiene and mask Sedation Level no sedation Patient Position: sitting Prep: Betadine Monitoring: threat monitoring analyst / EKG, heart rate / toco, heart rate, NIBP and continuous pulse ox Location: lumbar (1-5) Lumbar: L3-L4 Approach: midline Technique: single shot Guidance with: landmark technique} Epidural/Spinal [place] and/or Catheter: Epidural/Spinal Kit: Lui Needle Type: Tuohy Needle Gauge: 17 G Needle Length: 3.5 in (8.89 cm) Needle Insertion Depth: 6 Catheter Type: multiport Catheter Size: 19 G Catheter at Skin Depth: 11 Number of Attempts: 1 Test Dose: lidocaine 1.5% with epinephrine 1-to-200,000 and negative Dose: 3 cc Catheter Securement Method: clear occlusive dressing, surgical tape and liquid medical adhesive Assessment: Block Outcome: a full evaluation is pending, no apparent complications and patient tolerated procedure well Procedure Assessment: patient tolerated procedure well with no complications Notes: Attempt by resident x 1. Patient identified. Time out done. Prep x3 and drape in sterile fashion. Infiltrated skin with 1% lidocaine. Needle insertion depth at 6 cm, catheter depth at skin 11 cm. Catheter aspiration negative x3, test dose negative, sterile dressing applied. No apparent complications. Patient instructed on fall precautions. Pump Settings: 12 mL/hr Bolus: 4 mL Lockout: 15 min Latosha Pereira MD, PGY-4 Dept. Anesthesiology 01/15/2024 2:54 PM ANESTHESIOLOGY [facility] 2024-01-15 01:34:06 Alvaro Caceres is a 18 year old female 37w0d Sandoval insertion: Insertion date and time: 01/15/24 0115 Sandoval catheter inserted through cervix in sterile fashion and inflated with 60 cc sterile saline. Sandoval bulb firmly in place inside internal os. Catheter taped to patient leg under traction. Patient tolerated procedure well. Please use the table below for: SVE ft/t/h CERVIX: Consistency : thick; Position: posterior, Station: -3 Score 0 1 2 3 Dilation (cm) 0 cm 1-2 cm 3-4 cm >5 cm Effacement 0 - 30 % 40 - 50 % 60 - 70 % > 80 % Consistency of the cervix Stiff Moderately soft Very soft Position of the cervix Posterior Median Anterior Station -3 -2 -1 to 0 +1, +2 Susan Sena MD 01/15/2024 1:34 AM OBSTETRICS & GYNECOLOGY [facility]
[2024-03-18] MEDS ORDERED: ONDANSETRON 4 MG/2 ML VIAL ONE (02:17)
[2024-03-18] MEDS ORDERED: NA CHLORIDE 0.9% 2,000 ML ONE (02:17)
[2024-03-18] MEDS ORDERED: ALBUTEROL 2.5 MG/3 ML NEB SOL ONE ×2 (02:37→02:38)
[2024-03-18 02:46] LABS: Absolute Basophils 0.2 K/uL (0-0.5); Absolute Eosinophils 0.2 K/uL (0-0.5); Absolute Lymphocytes (CBC) 2.1 K/uL (0.7-4.9); Absolute Monocytes 1.3 K/uL (0.1-1.3); Absolute Neutrophil 11.4 K/uL (1.8-8.0); Basophils % 1.5 % (0-1.3); Eosinophils % 1.6 % (0-4.4); Hematocrit 41.5 % (36.0-45.0); Hemoglobin 13.1 g/dL (12.0-15.0); Lymphocytes % 13.7 % (15.3-44.8); MCH 24.7 pg (27.0-35.0); MCHC 31.7 g/dL (32.0-36.0); MCV 77.9 fL (80-100); MPV 8.3 fL (7.6-11.3); Monocytes % 8.7 % (3.3-12.3); Neutrophils % 74.5 % (41.7-73.7); Nucleated Red Blood Cells % 0.1 % (0-0); Platelets 409 thou/uL (152-406); RBC Red Blood Cell Count 5.33 M/uL (3.86-4.86); Red Cell Distribution Width 18.2 % (12.1-15.2)
[2024-03-18 02:50] LABS: PT Prothrombin Time 12.3 SECONDS (9.4-12.5); Protime INR 1.1
[2024-03-18 02:57] LABS: Barbiturates NEGATIVE (NEGATIVE); Benzodiazepines NEGATIVE (NEGATIVE); Cocaine NEGATIVE (NEGATIVE); METHAMPHETAM NEGATIVE (NEGATIVE); Methadone NEGATIVE (NEGATIVE); Opiates NEGATIVE (NEGATIVE); Phencyclidine NEGATIVE (NEGATIVE); THC Cannibis POSITIVE (NEGATIVE)
[2024-03-18 03:03] LABS: ALT/SGPT 84 U/L (13-56); Albumin 4.1 g/dL (3.4-5.0); Albumin/Globulin Ratio 0.9 (1.1-1.8); Alkaline Phosphatase 113 U/L (45-117); Anion Gap 11.6 mEq/L (5.0-15.0); BUN Blood Urea Nitrogen 13 mg/dL (7-18); Bicarbonate 22 mEq/L (21-32); Bilirubin Total 1.1 mg/dL (0.2-1.0); Globulin 4.7 g/dL (2.3-3.5); Glomerular Filtration Rate 100 ml/min (=/>90); Glucose Level 110 mg/dL (74-106); Protein, Total 8.8 g/dL (6.4-8.2); Sodium Level 137 mEq/L (136-145)
[2024-03-18 03:09] LABS: AST/SGOT 63 U/L (15-37); Bilirubin Direct < 0.2 mg/dL (0-0.2); Bilirubin Indirect, Calculated 0.9 mg/dL (0.2-0.8); Potassium 3.6 mEq/L (3.5-5.1)
[2024-03-18 03:25] LABS: Sqamous Epithelial <5 /HPF (None Seen); Urine Bacteria <20 /HPF (<20); Urine Crystals Unidentified Few /HPF (None Seen); Urine Culture Reflex Order REFLEXED; Urine Microscopic Reflex YN ORDER UMIC; Urine Mucus 2+ /HPF (None Seen); Urine WBC 20-50 /HPF (<5); Urine WBC Clump Rare /HPF (None Seen); Urine Yeast (Budding) Trace /HPF (None Seen)
[2024-03-18 03:26] LABS: Urine Clarity Turbid (Clear); Urine Color Yellow (Yellow)
[2024-03-18 03:27] LABS: Specific Gravity 1.033 (1.005-1.030); Urine Bilirubin NEGATIVE (Negative); Urine Blood Negative (Negative); Urine Glucose Negative (Negative); Urine Ketones NEGATIVE (Negative); Urine Protein 1+ (Negative); Urine pH 5.5 (5.0-7.0)
[2024-03-18 03:28] LABS: Urine Nitrite NEGATIVE (Negative); Urine Urobilinogen Normal (Normal)
[2024-03-18 04:14] LABS: Specific Gravity 1.033 (1.005-1.030)
[2024-03-18] MEDS ORDERED: NA CHLORIDE 0.9% 1,000 ML ONE (05:27)
[2024-03-18 06:11] LABS: Albumin 3.6 g/dL (3.4-5.0); Albumin/Globulin Ratio 0.9 (1.1-1.8); Anion Gap 9.7 mEq/L (5.0-15.0); Bilirubin Total 0.8 mg/dL (0.2-1.0); Globulin 4.2 g/dL (2.3-3.5); Potassium 3.7 mEq/L (3.5-5.1); Protein, Total 7.8 g/dL (6.4-8.2)
[2024-03-18 06:30] LABS: Absolute Lymphocytes (CBC) 0.8 K/uL (0.7-4.9); Absolute Monocytes 0.7 K/uL (0.1-1.3); Basophils % 0.1 % (0-1.3); Eosinophils % 0.1 % (0-4.4); Hematocrit 37.1 % (36.0-45.0); Hemoglobin 11.7 g/dL (12.0-15.0); Lymphocytes % 5.2 % (15.3-44.8); MCH 24.9 pg (27.0-35.0); MCHC 31.6 g/dL (32.0-36.0); MCV 78.8 fL (80-100); MPV 8.4 fL (7.6-11.3); Monocytes % 4.5 % (3.3-12.3); Neutrophils % 90.1 % (41.7-73.7); Platelets 318 thou/uL (152-406); RBC Red Blood Cell Count 4.71 M/uL (3.86-4.86); Red Cell Distribution Width 18.2 % (12.1-15.2)
--- NOTE | 2024-03-18 07:16 | ER ---
Nurse's Notes [facility] Name: Alvaro Caceres Age: 18 yrs Sex: Female : 2005 Arrival Date: 03/18/2024 Time: 01:51 Bed 14 Private MD: Diagnosis: Nausea with vomiting, unspecified;Accidental overconsumption of sertraline . Cannabis Use disorder ;Moderate Dehydration , Tachycardia Presentation: 03/18 01:59 Chief complaint: Patient states: I took too many of my sertraline. I took 6 pills of 50 kd3 mg on accident approximately 4 hours ago. I put them all into one day in my medication cup for that day. I have never had suicidal thoughts or intent to hurt myself. Coronavirus screen: Vaccine status: Patient reports being unvaccinated. Ebola Screen: No symptoms or risks identified at this time. Initial Sepsis Screen: Does the patient meet any 2 criteria? No. Patient's initial sepsis screen is negative. Does the patient have a suspected source of infection? No. Patient's initial sepsis screen is negative. Risk Assessment: Do you want to hurt yourself or someone else? Patient reports no desire to harm self or others. Onset of symptoms was March 18, 2024. 01:59 Method Of Arrival: Ambulatory kd3 01:59 Acuity: JESSICA 2 kd3 Triage Assessment: 02:01 General: Appears uncomfortable, Behavior is calm, cooperative. Pain: Complains of pain kd3 in abdomen. GI: Reports upper abdominal pain. [employer]IC: 02:02 LMP 02/21/2024, unknown rg5 Historical: - PMHx: 02:01 Asthma; kd3 - Immunization history:: Adult Immunizations up to date. - Infectious Disease History:: Denies. - Social history:: Smoking status: Patient denies any tobacco usage or history of. - Family history:: not pertinent. Screenin:[address] [facility] ED Fall Risk Assessment (Adult) History of falling in the last 3 months, rg5 including since admission No falls in past 3 months (0 pts) Confusion or Disorientation No (0 pts) Intoxicated or Sedated No (0 pts) Impaired Gait No (0 pts) Mobility Assist Device Used No (0 pt) Altered Elimination No (0 pt) Score/Fall Risk Level 0 - 2 = Low Risk Oriented to surroundings, Maintained a safe environment, Hourly rounding (assess needs \T\ fall precautionary measures) done. Abuse screen: Denies threats or abuse. Nutritional screening: No deficits noted. Tuberculosis screening: No symptoms or risk factors identified. Assessment: 02:10 General: Appears in no apparent distress. comfortable, Behavior is calm, cooperative, rg5 appropriate for age. 02:10 Pain: Complains of pain in abdomen Pain currently is 3 out of 10 on a pain scale. rg5 Quality of pain is described as dull. Neuro: Level of Consciousness is awake, alert, obeys commands, Oriented to person, place, time. Cardiovascular: Patient's skin is warm and dry. Rhythm is sinus tachycardia. Respiratory: Airway is patent Trachea midline Respiratory effort is even, unlabored, Respiratory pattern is regular, symmetrical. : No signs and/or symptoms were reported regarding the genitourinary system. EENT: No deficits noted. Derm: Skin is intact, Skin is dry, Skin is normal, Skin temperature is cool. Musculoskeletal: Circulation, motion, and sensation intact. Range of motion: intact in all extremities. 02:11 GI: Abdomen is round obese, Abd is soft and non tender. rg5 03:15 Reassessment: Patient and/or family updated on plan of care and expected duration. Pain rg5 level reassessed. Patient is alert, oriented x 3, equal unlabored respirations, skin warm/dry/pink. Patient states symptoms have improved. 03:20 Reassessment: POISON CONTROL NOTIFIED- CASE NO# [id number]. evert said if all symptoms rg5 resolved she can go 6-12 hrs observation.. 04:20 Reassessment: Patient and/or family updated on plan of care and expected duration. Pain rg5 level reassessed. Patient is alert, oriented x 3, equal unlabored respirations, skin warm/dry/pink. 05:38 Reassessment: Patient and/or family updated on plan of care and expected duration. Pain rg5 level reassessed. Patient is alert, oriented x 3, equal unlabored respirations, skin warm/dry/pink. Patient states symptoms have improved. 06:37 Reassessment: Patient and/or family updated on plan of care and expected duration. Pain rg5 level reassessed. Patient is alert, oriented x 3, equal unlabored respirations, skin warm/dry/pink. Vital Signs: 01:59 Weight 78.02 kg; Height 5 ft. 2 in. ; kd3 02:02 BP 162 / 93; Pulse 105; Resp 18; Temp 98.5(O); Pulse Ox 100% ; Pain 3/10; rg5 03:38 BP 138 / 78; Pulse 117; Resp 18; Pulse Ox 100% on R/A; rg5 04:35 BP 133 / 94; Pulse 102; Resp 17; Pulse Ox 99% on R/A; rg5 06:24 BP 147 / 84; Pulse 106; Resp 18; Pulse Ox 100% on R/A; rg5 07:52 BP 145 / 82; Pulse 98; Resp 15; Pulse Ox 98% ; ko1 01:59 Body Mass Index 31.46 (78.02 kg, 157.48 cm) - Percentile 94.9 % kd3 02:02 Pain Scale: Adult rg5 Alejandro Coma Score: 03/19 00:39 Eye Response: spontaneous(4). Motor Response: obeys commands(6). Verbal Response: sp4 oriented(5). Total: 15. ED Course: 03/18 01:54 Patient arrived in ED. gm2 01:55 Jose Luis Álvarez, RN is Primary Nurse. rg5 02:01 Triage completed. kd3 02:01 Arm band placed on right wrist. kd3 02:07 Archie Arce MD is Attending Physician. sp4 02:10 Patient has correct armband on for positive identification. Call light in reach. Side rg5 rails up X 1. Client placed on continuous cardiac and pulse oximetry monitoring. NIBP monitoring applied. monitoring tech on. Pulse ox on. Door closed. Noise minimized. Warm blanket given. 02:10 No provider procedures requiring assistance completed. rg5 02:26 Inserted saline lock: 20 gauge in left antecubital area, using aseptic technique. Blood af3 collected. Flushed with 10 mL NS. 07:29 Provided Education on: meds, discharge. ko1 07:52 Assisted to bathroom. ko1 07:52 IV discontinued, intact, bleeding controlled, No redness/swelling at site. Pressure ko1 dressing applied. Administered Medications: 02:30 Drug: NS 0.9% IV 1000 ml IV at 1 bolus Per protocol; to be given as a bolus over 60 rg5 minutes Route: IV; Rate: 1 bolus; Site: left antecubital; 03:30 Follow up: IV Status: Completed infusion; IV Intake: 1000ml rg5 02:30 Drug: NS 0.9% IV 1000 ml IV at 1000 ml once; to be given as a bolus over 60 minutes rg5 Route: IV; Rate: 1000 ml; Site: left antecubital; 03:30 Follow up: IV Status: Completed infusion; IV Intake: 1000ml rg5 02:30 Drug: Ondansetron IVP 8 mg IVP once; over 2 minutes Route: IVP; Site: left antecubital; rg5 03:00 Follow up: Response: No adverse reaction rg5 02:43 Drug: Albuterol Inhalation 2.5 mg Inhalation every 20 minutes x3 Route: Inhalation; rg5 07:58 Follow up: Response: No adverse reaction ko1 05:36 Drug: NS 0.9% IV 1000 ml IV at 1 bolus Per protocol; to be given as a bolus over 60 rg5 minutes Route: IV; Rate: 1 bolus; Site: left antecubital; 07:57 Follow up: Response: No adverse reaction; IV Status: Completed infusion; IV Intake: ko1 1000ml Medication: 02:11 VIS not applicable for this client. rg5 Intake: 03:30 IV: 1000ml; Total: 1000ml. rg5 03:30 IV: 1000ml; Total: 2000ml. rg5 07:57 IV: 1000ml; Total: 3000ml. ko1 Outcome: 07:15 Discharge ordered by . sp4 08:02 Discharged to home ambulatory, with family, ko1 08:02 Condition: stable 08:02 Discharge instructions given to patient, family, Instructed on discharge instructions, follow up and referral plans. medication usage, Demonstrated understanding of instructions, follow-up care, medications, 08:06 Patient left the ED. ko1 Signatures: Jolynn Gilbert RN RN kd3 Radha Cazares RN RN ko1 Archie Arce MD MD sp4 Adore Berman Rommel, RN RN rg5 Zulema Chan
--- NOTE | 2024-03-18 07:16 | EDPHYS ---
Physician Documentation [facility] Name: Alvaro Caceres Age: 18 yrs Sex: Female : 2005 Arrival Date: 03/18/2024 Time: 01:51 Bed 14 Private MD: ED Physician Archie Arce HPI: 03/18 02:08 This 18 yrs old Female presents to ER via Ambulatory with complaints of sp4 Nausea/Vomiting, Abdominal Pain, TOOK TO MANY OF HER MEDS. 03/19 00:26 18-year-old female presents with nausea vomiting and abdominal pain. Patient states sp4 that she took 6 tablets of sertraline 50 mg each secondary to medication mistake. Patient also reports smoking some marijuana. 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 - Infectious Disease History:: Denies. - Social history:: Smoking status: Patient denies any tobacco usage or history of. - Family history:: not pertinent. ROS: 03/19 00:26 Constitutional: Negative for fever, chills, and weight loss, positive abdominal pain, sp4 positive nausea vomiting, positive feeling unwell All other systems are negative, Exam: 00:26 Constitutional: This is a well developed, well nourished patient who is awake, alert, sp4 mild distress secondary to nausea Head/Face: Normocephalic, atraumatic. Eyes: Pupils equal round and reactive to light, extra-ocular motions intact. Lids and lashes normal. Conjunctiva and sclera are not injected. Cornea within normal limits. Periorbital areas with no swelling, redness, or edema. ENT: Nares patent. No nasal discharge, no septal abnormalities noted. Tympanic membranes are normal and external auditory canals are clear. Oropharynx with no redness, swelling, or masses, exudates, or evidence of obstruction, uvula midline. Mucous membranes moist. Neck: Trachea midline, no thyromegaly or masses palpated, and no cervical lymphadenopathy. Supple, full range of motion without nuchal rigidity, or vertebral point tenderness. Chest/axilla: Normal chest wall appearance and motion. Nontender with no deformity. No lesions are appreciated. Cardiovascular: Regular rate and rhythm with a normal S1 and S2. No gallops, murmurs, or rubs. Normal PMI, no JVD. No pulse deficits. Respiratory: Lungs have equal breath sounds bilaterally, clear to auscultation and percussion. No rales, rhonchi or wheezes noted. No increased work of breathing, no retractions or nasal flaring. Abdomen/GI: Soft, with normal bowel sounds. No distension or tympany. No guarding or rebound. No evidence of tenderness throughout. Back: No spinal tenderness. No costovertebral tenderness. Skin: Warm, dry with normal turgor. Normal color with no rashes, no lesions, and no evidence of cellulitis. MS/ Extremity: Pulses equal, no cyanosis. Neurovascular intact. Full, normal range of motion. Neuro: Awake and alert, GCS 15, oriented to person, place, time, and situation. Cranial nerves II-XII grossly intact. Motor strength 5/5 in all extremities. Sensory grossly intact. Psych: Awake, alert, with orientation to person, place and time. Behavior, mood, and affect are within normal limits 00:39 ECG was reviewed by the Attending Physician. EKG at 0201 sinus tachycardia rate 105, sp4 Vital Signs: 03/18 01:59 Weight 78.02 kg; Height 5 ft. 2 in. ; kd3 02:02 BP 162 / 93; Pulse 105; Resp 18; Temp 98.5(O); Pulse Ox 100% ; Pain 3/10; rg5 03:38 BP 138 / 78; Pulse 117; Resp 18; Pulse Ox 100% on R/A; rg5 04:35 BP 133 / 94; Pulse 102; Resp 17; Pulse Ox 99% on R/A; rg5 06:24 BP 147 / 84; Pulse 106; Resp 18; Pulse Ox 100% on R/A; rg5 07:52 BP 145 / 82; Pulse 98; Resp 15; Pulse Ox 98% ; ko1 01:59 Body Mass Index 31.46 (78.02 kg, 157.48 cm) - Percentile 94.9 % kd3 02:02 Pain Scale: Adult rg5 Alejandro Coma Score: 03/19 00:39 Eye Response: spontaneous(4). Motor Response: obeys commands(6). Verbal Response: sp4 oriented(5). Total: 15. MDM: 03/18 02:17 Medical Screening Exam initiated sp4 03/19 00:30 Differential diagnosis: Nonspecific abd pain, gastritis, viral gastroenteritis, sp4 gastroenteritis. Data reviewed: vital signs, nurses notes, lab test result(s), drug level(s), electrolytes, hepatic panel. Consideration of Admission/Observation Escalation of care including admission/observation considered. ED course: 18-year-old female presents with nausea vomiting. This is likely secondary to marijuana. Patient improved after IV hydration. Patient stable for discharge home. Advised to restart daily sertraline tomorrow morning.. 03/18 02:17 Order name: Acetaminophen; Complete Time: 05:20 4 03/18 02:17 Order name: Basic Metabolic Panel; Complete Time: 05:20 [facility] 03/18 02:17 Order name: CBC with Diff; Complete Time: 05:20 4 03/18 02:17 Order name: ETOH Level; Complete Time: 05:20 [facility] 03/18 02:17 Order name: Hepatic Function; Complete Time: 05:20 [facility] 03/18 02:17 Order name: PT-INR; Complete Time: 05:20 4 03/18 02:17 Order name: Test, Urine; Complete Time: 05:20 4 03/18 02:17 Order name: Ptt, Activated; Complete Time: 05:20 [facility] 03/18 02:17 Order name: Salicylate; Complete Time: 05:20 4 03/18 02:17 Order name: Urinalysis w/ reflexes; Complete Time: 05:20 4 03/18 02:17 Order name: Urine Drug Screen; Complete Time: 05:20 [facility] 03/18 03:32 Order name: Urine Culture [facility] 03/18 05:25 Order name: CMP; Complete Time: 07:02 [facility] 03/18 05:25 Order name: CBC with Diff; Complete Time: 07:38 [facility] 03/18 06:38 Order name: CBC Smear Scan; Complete Time: 07:38 [facility] 03/18 02:17 Order name: EKG - Nurse/Tech; Complete Time: 02:19 [facility] 03/18 02:17 Order name: IV Saline Lock; Complete Time: 02:19 [facility] 03/18 02:17 Order name: Labs collected and sent; Complete Time: 02:19 [facility] 03/18 02:17 Order name: Suicide Screening (Caesar); Complete Time: 02:44 sp4 EC/19 02:01 Rate is 105 beats/min. Rhythm is regular, Sinus tachycardia. QRS [place] is Normal. [place] sp4 interval is normal. QRS interval is normal. QT interval is normal. No Q waves. T waves are Normal. No ST changes noted. Clinical impression: No evidence of ischemia. Interpreted by me. Reviewed by me. Administered Medications: 02:30 Drug: NS 0.9% IV 1000 ml IV at 1 bolus Per protocol; to be given as a bolus over 60 rg5 minutes Route: IV; Rate: 1 bolus; Site: left antecubital; 03:30 Follow up: IV Status: Completed infusion; IV Intake: 1000ml rg5 02:30 Drug: NS 0.9% IV 1000 ml IV at 1000 ml once; to be given as a bolus over 60 minutes rg5 Route: IV; Rate: 1000 ml; Site: left antecubital; 03:30 Follow up: IV Status: Completed infusion; IV Intake: 1000ml rg5 02:30 Drug: Ondansetron IVP 8 mg IVP once; over 2 minutes Route: IVP; Site: left antecubital; rg5 03:00 Follow up: Response: No adverse reaction rg5 02:43 Drug: Albuterol Inhalation 2.5 mg Inhalation every 20 minutes x3 Route: Inhalation; rg5 07:58 Follow up: Response: No adverse reaction ko1 05:36 Drug: NS 0.9% IV 1000 ml IV at 1 bolus Per protocol; to be given as a bolus over 60 rg5 minutes Route: IV; Rate: 1 bolus; Site: left antecubital; 07:57 Follow up: Response: No adverse reaction; IV Status: Completed infusion; IV Intake: ko1 1000ml Disposition Summary: 03/18/24 07:15 Discharge Ordered Notes: Clear liquid advised for 24 hours Location: Home sp4 Problem: new sp4 Symptoms: have improved sp4 Condition: Stable sp4 Diagnosis - Nausea with vomiting, unspecified sp4 - Accidental overconsumption of sertraline . Cannabis Use disorder sp4 - Moderate Dehydration , Tachycardia sp4 Followup: sp4 - With: Private Physician - When: As needed - Reason: Recheck today's complaints Discharge Instructions: - Discharge Summary Sheet sp4 - Clear Liquid Diet, Adult, [id number] sp4 Forms: - Work release form sp4 - Patient Portal Instructions sp4 Prescriptions: - ondansetron 8 mg Oral Tablet,disintegrating - take 1 tablet ORAL route every 8 hours PRN nausea; 30 tablet; Refills: 0, sp4 Product Selection Permitted Signatures: Dispatcher [employer] EDMS Jolynn Gilbert RN RN kd3 Archie Arce MD MD sp4 Jose Luis Álvarez RN RN rg5 Radha Cazares RN ko1 Corrections: (The following items were deleted from the chart) 02:18 02:18 ACETAMINOPHEN+C.LAB.BRZ ordered. EDMS EDMS 02:18 02:18 BASIC METABOLIC PANEL+C.LAB.BRZ ordered. EDMS EDMS 02:18 02:18 CBC+H.LAB.BRZ ordered. EDMS EDMS 02:18 02:18 ETHANOL+C.LAB.BRZ ordered. EDMS EDMS 02:18 02:18 HEPATIC FUNCTION+C.LAB.BRZ ordered. EDMS EDMS 02:18 02:18 PROTIME (+INR)+COAG.LAB.BRZ ordered. EDMS EDMS 02:18 02:18 Test, Urine+UC.LAB.BRZ ordered. EDMS EDMS 02:18 02:18 PTT, ACTIVATED+COAG.LAB.BRZ ordered. EDMS EDMS 02:18 02:18 SALICYLATE+C.LAB.BRZ ordered. EDMS EDMS 02:18 02:18 Urinalysis+U.LAB.BRZ ordered. EDMS EDMS 02:18 02:18 URINE DRUG SCREEN+UC.LAB.BRZ ordered. EDMS EDMS 05:25 05:25 COMPREHENSIVE METABOLIC PANEL+C.LAB.BRZ ordered. EDMS EDMS 05:25 05:25 CBC+H.LAB.BRZ ordered. EDMS EDMS
[2024-03-18 07:32] LABS: Blood Morphology Comment NOT SEEN (NOT SEEN); Platelet Estimate ADEQ; White Blood Cell Scan OK (OK)
[2024-03-18 08:36] VITALS: TEMP 98.5
[2024-03-18 08:41] VITALS: BP 145/82; O2SAT 98
--- NOTE | 2024-03-19 15:43 | EKG ---
Test Date: 2024-03-18 Test Time: 02:01:45 Water Team Leader: AF MEASUREMENT RESULTS: Intervals: Rate: 105 OR: 140 QRSD: 80 QT: 322 QTc: 425 [place]: P: 50 OR: 140 QRS: 74 T: 35 INTERPRETIVE STATEMENTS: Sinus tachycardia Right atrial enlargement Borderline ECG No previous ECG available for comparison Electronically Signed On 03-19-24 15:42:03 [employer] by Reza Amaral
== END 2024-03-18 08:06 | disposition home or self-care (01) ==
LOC: ER 01:51
DX: T43.221A Poisoning by selective serotonin reuptake inhibitors, accidental (unintentional), initial encounter (principal); R11.2 Nausea with vomiting, unspecified; E86.0 Dehydration; R00.0 Tachycardia, unspecified; F12.90 Cannabis use, unspecified, uncomplicated; J45.909 Unspecified asthma, uncomplicated
CPT/HCPCS: 96361; 93005; 87088; 85025 ×2; 81001; 87086; 80048; 36415; 81025; 85610; 80076; 85730; 80053; 80307; 96374; 99285; 80143; 80179; 82077; J7613 ×2; J2405; J7030 ×2

== ENCOUNTER 2024-08-09 00:42 | Emergency (ER) | payer OTHER ==
--- OUTSIDE RECORDS SUMMARY | 2024-08-09 00:49 | XMS REPORT | Continuity of Care Document ---
Author Name Unknown Address [address] [facility] [address] [place] [address] [facility] [place] Address [address] [facility] [address] [place] [address] Care Team Providers Care Panel Lay Up Worker Name Role Phone Sharda Guevara CNM Primary Care Physician + SHARDA GUEVARA Attending Clinician Adele [facility] Attending Clinician Unavailable Sharda Guevara CNM Attending Clinician [phone] LATONYA ADEN Attending Clinician Unavailable LATONYA ADEN Attending Clinician Unavailable [facility] Latonya Carpenter MD Attending Clinician [phone] Doctor Unassigned, [place] Attending Clinician U KAYDEN Cuba Attending Clinician UnavailKAYDEN Rose Attending Clinician Kayden Segura Attending Clinician USAMA GAVIN Attending Clinician Unavailable Fellow, [facility] Attending Clinician Un available Usama Gavin DO Attending Clinician [phone] KAYLEE LE Attending Clinician Unavailable KAYLEE LE Attending Clinician Unavailable 3, [facility] Room Attending Clinician Kaylee Quintanilla MD Attending Clinician [phone] USAMA LAUGHLIN Attending Clinician Unavailable Visit, [facility] Nurse Attending Clinician Unava ilBRADLEY Tay Attending Clinician Unavailable BRADLEY OCHOA Attending Clinician Unavailable BRADLEY OCHOA Attending Clinician Unavailable Fausto BOYLE, Ayaz Lorenzo Attending Clinician + Jose Luis BOYLE, [place] Attending Clinician [phone] Faculty, Ob Attending Clinician Unavailable Kleli BOYLE, Latosha Attending Clinician [phone] Jim BOYLE, Osvaldo Barksdale Attending Clinician [phone] Akinsiakshat WHCNP, Laith Huntley Attending Clinician + AKINLAITH ENG Attending Clinician Unavail able Sharda Guevara CNM Attending Clinician [phone] Perry Baldwin MD, [place] Attending Clinician + PRIMO YOUNG Attending Clinician Unav nirmala Aden MD, Latonya Dykes Attending Clinician [phone] Doctor Unassigned, [place] Attending Clinician U navailBRADLEY Tay Admitting Clinician Unavailable Jose Luis BOYLE, [place] Admitting Clinician [phone] Payers Payer Name Policy Type Policy Number Effective Date Expirati on Date Source [facility] [id number] 2023 00:00:00 Problems Condition Name Condition Details Condition Category Status Onset Date Resolution Date Last Treatment Date Treating Clinician Comments Source Anxiety and depression during Anxiety and depression during Disease Active 07-20 00:00: 00 [facility] Short interval between pregnancie s affecting , antepartum Short interval between pregnancie s affecting , antepartum Disease Active 04-01 00:00: 00 [facility] History of depression , currently History of depression , currently Disease Active 04-01 00:00: 00 [facility] History of pre-eclamp noemi in prior , currently History of pre-eclamp noemi in prior , currently Disease Active 2023-03 00:00: 00 [facility] Previous delivery affecting , antepartum Previous delivery affecting , antepartum Disease Active 2023-03 00:00: 00 [facility] Anemia, Anemia, Disease Resolve d 2023-03 00:00: 00 2024-03-30 00:00:00 2024-03-30 10:26:47 [facility] Pre-eclamp noemi, delivered Pre-eclamp noemi, delivered Disease Resolve d 2023-03 0-15 00:00: 00 2024-03-30 00:00:00 2024-03-30 10:26:46 [facility] Elevated blood pressure reading without diagnosis of hypertensi on Elevated blood pressure reading without diagnosis of hypertensi on Disease Resolve d 2023-03 0-15 00:00: 00 2024-02-06 00:00:00 2024-02-06 09:22:53 [facility] 36 weeks gestation of 36 weeks gestation of Disease Resolve d 2023-03 0-15 00:00: 00 2024-02-06 00:00:00 2024-02-06 09:22:56 [facility] Elevated blood pressure affecting in third trimester, antepartum Elevated blood pressure affecting in third trimester, antepartum Disease Resolve d 2023-03 0-15 00:00: 00 2024-02-06 00:00:00 2024-02-06 09:22:58 [facility] Elevated blood pressure affecting in third trimester, antepartum Elevated blood pressure affecting in third trimester, antepartum Disease Resolve d 2023-03 0-15 00:00: 00 2024-02-06 00:00:00 2024-02-06 09:22:58 [facility] Abnormal maternal glucose tolerance, antepartum Abnormal maternal glucose tolerance, antepartum Disease Resolve d -08 00:00: 00 2024-02-06 00:00:00 2024-02-06 09:22:52 [facility] Heartburn during in second trimester Heartburn during in second trimester Disease Resolve d 8-07 00:00: 00 2024-02-06 00:00:00 2024-02-06 09:22:49 [facility] Blood product declined Blood product declined Disease Resolve d 8-07 00:00: 00 2024-02-06 00:00:00 2024-02-06 09:22:51 [facility] Obesity affecting Obesity affecting Disease Active 3-08 00:00: 00 2024-02-06 00:00:00 2024-02-06 09:22:47 [facility] Splenic laceration Splenic laceration Disease Resolve d 1- 00:00: 00 2023-07-11 00:00:00 2023-07-11 21:15:30 [facility] Allergies, Adverse Reactions, Alerts Allergy Name Allergy Type Status Severity Reaction(s) Onset Date Inactive Date Treating Clinician Comments Source NO KNOWN ALLERGIE S Drug Class Active [facility] Social History Social Habit Start Date Stop Date Quantity Comments Source ASSERTION 2024-03-13 00:00:00 [facility] History of Social function 2024-06-15 00:00:00 2024-06-15 00:00:00 [facility] Alcoholic beverage intake 2024-06-15 00:00:00 2024-06-15 00:00:00 Ex-drinker (finding) [facility] Alcohol intake 2023-07-11 00:00:00 2023-07-11 00:00:00 Ex-drinker (finding) [facility] Tobacco use and exposure 2023-06-06 00:00:00 2023-06-06 00:00:00 Smokeless tobacco non-user [facility] Sex assigned at 2005 00:00:00 2005 00:00:00 [facility] Smoking Status Start Date Stop Date Source Tobacco smoking consumption unknown [facility] Never smoked tobacco [facility] Medications Ordered Medication Name Filled Medication Name Start Date Stop Date Current Medication? Ordering Clinician Indication Dosage Frequency Signature (SIG) Comments Components Source PNV 67-iron ps-folate no.1-dha (VITAFOL ULTRA) 29 mg iron- 1 mg-200 mg Cap 07-20 00:00: 00 Yes [id number] 1{capsu le} Take 1 capsule by mouth in the morning. [facility] aspirin 81 mg EC tablet 07-20 00:00: 00 Yes [id number] 9100 81mg Take 1 tablet by mouth in the morning. [facility] SERTraline (ZOLOFT) 50 mg tablet 07-20 00:00: 00 Yes [id number] 50mg Take 1 tablet by mouth in the morning. [facility] aspirin 81 mg EC tablet 3-18 00:00: 00 07-20 00:00 :00 No [id number] 9100 81mg Take 1 tablet by mouth in the morning. [facility] aspirin 81 mg EC tablet - 00:00: 00 Yes [id number] 9100 81mg Take 1 tablet by mouth in the morning. [facility] famotidine (PEPCID) 20 mg tablet 05-11 00:00: 00 Yes [id number] 20mg Take 1 tablet by mouth in the morning. [facility] PNV 67-iron ps-folate no.1-dha (VITAFOL ULTRA) 29 mg iron- 1 mg-200 mg Cap 2023-03 00:00: 00 07-20 00:00 :00 No [id number] 1{capsu le} Take 1 capsule by mouth in the morning. [facility] SERTraline (ZOLOFT) 50 mg tablet 2023-03 00:00: 00 03-08 05:59 :00 No [id number] Take 1 tablet by mouth daily for 4 days, THEN 2 tablets daily for 26 days. [facility] human papillomav vac,9-caitie(P F) (GARDASIL-9 ) syringe 0.5 mL 2023-03 03:23: 35 Yes .5mL 0.5 mL, Intramuscu lar, ONCE-PRIOR TO DISCHARGE, 1 dose, Starting on 01/18/24 at 2223, Until Discontinu ed, Routine, Give vaccine prior to discharge [facility] flu vac ts 2023(6 ms up)CD(PF) (FLUCELVAX TRI (PF)) IM injection 0.5 mL 2023-03 03:23: 24 Yes .5mL 0.5 mL, Intramuscu lar, ONCE-PRIOR TO DISCHARGE, 1 dose, Starting on 01/18/24 at 2223, Until Discontinu ed, Routine, Give vaccine prior to discharge [facility] [id number] fum-folic 27 mg iron- 1 mg folic tablet 2023-03 00:00: 03-30 00:00 :00 No [id number] 1{tbl} Take 1 tablet by mouth in the morning. [facility] docusate 100 mg capsule 2023-03 00:00: 00 03-30 00:00 :00 No [id number] 200mg Take 2 capsules by mouth once daily as needed for Constipati on. [facility] ferrous sulfate 325 mg (65 mg iron) tablet 2023-03 00:00: 00 03-30 00:00 :00 No [id number] 325mg Take 1 tablet by mouth in the morning. [facility] ibuprofen 800 mg tablet 2023-03 00:00: 00 03-30 00:00 :00 No [id number] 800mg Take 1 tablet by mouth every 8 (eight) hours as needed (pain). Take with food or milk. [facility] acetaminoph en 500 mg tablet 2023-03 00:00: 00 03-30 00:00 :00 No [id number] 1000mg Take 2 tablets by mouth every 8 (eight) hours as needed for Pain. [facility] oxyCODONE 5 mg immediate release tablet 2023-03 00:00: 00 01-26 04:59 :00 No [id number] 5mg Take 1 tablet by mouth every 6 (six) hours as needed (pain) for up to 7 days. Indication s: acute pain [facility] docusate (COLACE) capsule 200 mg 2023-03 14:00: 00 01-18 19:50 :03 No 200mg 200 mg, Oral, DAILY, First dose on Fri01/17/24 at 0900, Until Discontinu ed, [facility] sim[facility] (GAS RELIEF (SIMETHICON E)) chewable tablet 160 mg 2023-03 01:00: 00 01-18 19:50 :03 No 160mg 160 mg, Oral, TID, First dose on Fri01/16/24 at 2000, Until Discontinu ed, Routine [facility] ibuprofen (IBU) tablet 800 mg 2023-03 23:30: 00 01-18 19:50 :03 No 800mg 800 mg, Oral, Q8HA1, First dose on Fri01/16/24 at 1830, Until Discontinu ed, Routine Univers y [facility] acetaminoph en (TYLENOL) tablet 1,000 mg 2023-03 21:30: 00 01-18 19:50 :03 No 1000mg 1,000 mg, Oral, Q8H, First dose on Fri01/16/24 at 1630, Until Discontinu ed, Routine [facility] rho(D) immune globulin (RHOPHYLAC) injection 300 mcg 2023-03 21:17: 08 01-18 19:50 :03 No 300ug [facility] oxyCODONE immediate release tablet 5 mg 2023-03 21:17: 03 01-18 19:50 :03 No 5mg 5 mg, Oral, Q6HPRN, Starting on Fri01/16/24 at 1617, Until Fri01/19/24 at 1450, Routine, Pain (scale 7-10), member service specialist approving Restricted medication : MADI SCOTT [facility] diphenhydrA MINE (BENADRYL) injection 25 mg 2023-03 21:17: 03 01-18 19:50 :03 No 25mg [facility] diphenhydrA MINE (BENADRYL) tablet 25 mg 2023-03 21:17: 03 01-18 19:50 :03 No 25mg [facility] ondansetron (ZOFRAN (PF)) injection 4 mg 2023-03 21:17: 03 01-18 19:50 :03 No 4mg [facility] bisacodyL (DULCOLAX) suppository 10 mg 2023-03 21:17: 03 01-18 19:50 :03 No 10mg [facility] magnesium hydroxide (MILK OF MAGNESIA) 400 mg/5 mL suspension 30 mL 2023-03 21:17: 03 01-18 19:50 :03 No 30mL 30 mL, Oral, QDAILYPRN, Starting on Fri01/16/24 at 1617, Until Fri01/19/24 at 1450, Routine, Constipati on [facility] lactated ringers IV infusion 1,000 mL 2023-03 21:17: 03 01-18 19:50 :03 No 1000mL [facility] naloxone (NARCAN) injection 0.2 mg 2023-03 19:35: 22 Yes .2mg 0.2 mg, Intramuscu lar, Q3HPRN, Starting on Fri01/16/24 at 1435, Until Discontinu ed, Routine, Itching, PACU [facility] diphenhydrA MINE (BENADRYL) tablet 25 mg 2023-03 19:35: 22 Yes 25mg 25 mg, Oral, Q4HPRN, Starting on Fri01/16/24 at 1435, Until Discontinu ed, Routine, Itching, PACU [facility] ketorolac (TORADOL) injection 30 mg 2023-03 19:35: 21 01-20 04:59 :00 No 30mg 30 mg, Slow IV Push, Q6HPRN, 4 doses, Starting on Fri01/16/24 at 1435, Until Fri01/20/24 at 2359, Routine, Pain (scale 1-3), [facility] metroNIDAZO LE in NaCl (iso-os) (FLAGYL I.V.) RTU IV infusion 500 mg 2023-03 18:30: 00 01-17 06:15 :39 No 500mg 500 mg, IV Infusion, Q12H ABX, First dose on Fri01/16/24 at 1330, Until Discontinu ed, Administer over 60 Minutes, 100 mL, Reason for Anti-Infec tive: Surgical Prophylaxi s, Surgical Prophylaxi s: 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, Duration of therapy: within 24 hours of surgery [facility] acetaminoph en (TYLENOL) tablet 1,000 mg 2023-03 03:45: 00 01-15 03:47 :00 No 1000mg 1,000 mg, Oral, ONCE, 1 dose, On Fri01/15/24 at 2245, STAT [facility] ropivacaine 0.2 % (NAROPIN (PF)) epidural infusion 2023-03 19:39: 00 Yes Epidural, CONTINUOUS PRN, Starting on Fri01/15/24 at 1439, Until Discontinu ed, Routine, Intra-op [facility] oxytocin (PITOCIN) 30 units in NS 500 mL IV infusion 2023-03 19:38: 20 01-15 21:17 :06 No 2mU/min at 2-40 mL/hr, IV Infusion, TITRATE, Starting on Fri01/15/24 at 1438, Until Fri01/16/24 at 1617, PRINCESS [facility] lidocaine-e pinephrine (XYLOCAINE W/EPINEPHRI NE) 1.5 %-1:200,000 injection 2023-03 19:33: 00 Yes Epidural, ONCE INTRA PROCEDURE, Starting on Fri01/15/24 at 1433, Until Discontinu ed, Routine, Intra-op [facility] lidocaine 1% (XYLOCAINE) 100 mg/10 mL (1 %) injection 2023-03 19:30: 00 Yes Infiltrati on, ONCE INTRA PROCEDURE, Starting on Fri01/15/24 at 1430, Until Discontinu ed, Routine, Intra-op [facility] sodium citrate-cit ruddy acid (BICITRA) 500-334 mg/5 mL solution 30 mL 2023-03 18:38: 08 01-14 19:32 :00 No 30mL 30 mL, Oral, PRE-PROCED URE ONCE, 1 dose, Starting on Fri01/15/24 at 1338, Until Fri01/15/24 at 1432, Routine, Surgery/Pr ocedure [facility] lactated ringers IV infusion 500 mL 2023-03 18:38: 08 01-14 20:04 :39 No 500mL at 999 mL/hr, 500 mL, IV Infusion, PRN - SEE INSTRUCTIO NS, 1 dose, Starting on Fri01/15/24 at 1338, Until Fri01/15/24 at 1504, Routine [facility] morphine (2 mg/mL) injection 4 mg 2023-03 13:15: 00 01-14 12:32 :00 No 4mg 4 mg, Slow IV Push, ONCE, 1 dose, On Fri01/15/24 at 0815, Routine [facility] diphenhydrA MINE (BENADRYL) tablet 25 mg 2023-03 09:15: 00 01-14 08:33 :00 No 25mg 25 mg, Oral, ONCE, 1 dose, On Fri01/15/24 at 0415, Routine [facility] morphine (2 mg/mL) injection 4 mg 2023-03 08:30: 00 01-14 07:39 :00 No 4mg 4 mg, Slow IV Push, ONCE, 1 dose, On Fri01/15/24 at 0330, Routine [facility] sodium citrate-cit ruddy acid (BICITRA) 500-334 mg/5 mL solution 30 mL 2023-03 05:39: 30 01-15 17:17 :00 No 30mL 30 mL, Oral, PRE-PROCED URE ONCE, 1 dose, Starting on Fri01/15/24 at 0039, Until Fri01/16/24 at 1217, Routine, Surgery/Pr ocedure [facility] [id number] IV infusion 1,000 mL 2023-03 05:39: 30 01-15 21:17 :06 No 1000mL at 1-125 mL/hr, IV Infusion, TITRATE, Starting on Bonnie 01/15/24 at 0039, Until Fri01/16/24 at 1617, Routine [facility] [id number] fum-folic () tablet 1 tablet 2023-03 0-16 14:00: 00 01-15 21:17 :06 No 1{tbl} 1 tablet, Oral, DAILY, First dose on Fri01/14/24 at 0900, Until Discontinu ed, Routine [facility] acetaminoph en (TYLENOL) tablet 1,000 mg 2023-03 0-15 21:44: 49 01-15 21:17 :06 No 1000mg 1,000 mg, Oral, Q6HPRN, Starting on Fri01/13/24 at 1644, Until Fri01/16/24 at 1617, Routine, Pain (scale 1-3) [facility] PNV 67-iron ps-folate no.1-dha (VITAFOL ULTRA) 29 mg iron- 1 mg-200 mg Cap 20 00:00: 00 03-30 00:00 :00 No [id number] 1{capsu le} Take 1 capsule by mouth in the morning. [facility] PNV 67-iron ps-folate no.1-dha (VITAFOL ULTRA) 29 mg iron- 1 mg-200 mg Cap 8-07 00:00: 00 11-17 00:00 :00 No [id number] 1{capsu le} Take 1 capsule by mouth in the morning. [facility] famotidine (PEPCID) 20 mg tablet 08-28 00:00: 00 03-30 00:00 :00 No [id number] 20mg Take 1 tablet by mouth in the morning and 1 tablet in the evening. [facility] Immunizations Ordered Immunization Name Filled Immunization Name Date Status Comments Source TDAP 2023-11-18 00:00:00 Completed [facility] TDAP 2023-11-18 00:00:00 Completed [facility] Meningococcal Oligosaccharide (groups A, C, Y and [...] Dosage 2004 00:00:00 Completed TDAP Unknown Completed [facility] TDAP Unknown Completed [facility] TDAP Unknown Completed [facility] Vital Signs Vital Name Observation Time Observation Value Comments S ource Systolic blood pressure 2024-07-20 20:19:00 128 mm[Hg] [facility] Diastolic blood pressure 2024-07-20 20:19:00 82 mm[Hg] [facility] Heart rate 2024-07-20 20:19:00 114 /min [facility] Body temperature 2024-07-20 20:19:00 36.67 Annette [facility] Respiratory rate 2024-07-20 20:19:00 18 /min [facility] Body height 2024-07-20 20:19:00 154.9 cm [facility] Body weight 2024-07-20 20:19:00 82.214 kg [facility] BMI 2024-07-20 20:19:00 34.25 kg/m2 [facility] Systolic blood pressure 2024-05-11 22:01:00 138 mm[Hg] [facility] Diastolic blood pressure 2024-05-11 22:01:00 88 mm[Hg] [facility] Heart rate 2024-05-11 21:55:00 89 /min [facility] Body temperature 2024-05-11 21:55:00 35.89 Annette [facility] Respiratory rate 2024-05-11 21:55:00 19 /min [facility] Body height 2024-05-11 21:55:00 154.9 cm [facility] Body weight 2024-05-11 21:55:00 81.557 kg [facility] BMI 2024-05-11 21:55:00 33.97 kg/m2 [facility] Systolic blood pressure 2024-03-30 16:02:00 133 mm[Hg] [facility] Diastolic blood pressure 2024-03-30 16:02:00 79 mm[Hg] [facility] Heart rate 2024-03-30 16:02:00 85 /min [facility] Body temperature 2024-03-30 16:02:00 36 Annette [facility] Respiratory rate 2024-03-30 16:02:00 18 /min [facility] Body height 2024-03-30 16:02:00 154.9 cm [facility] 2024-03-30 16:02:00 87.176 kg [facility] BMI 2024-03-30 16:02:00 36.31 kg/m2 [facility] Systolic blood pressure 2024-02-06 15:45:00 128 mm[Hg] [facility] Diastolic blood pressure 2024-02-06 15:45:00 100 mm[Hg] [facility] Heart rate 2024-02-06 15:41:00 84 /min [facility] Body temperature 2024-02-06 15:41:00 36.22 Annette [facility] Respiratory rate 2024-02-06 15:41:00 18 /min [facility] Body height 2024-02-06 15:41:00 154.9 cm [facility] Body weight 2024-02-06 15:41:00 87.232 kg [facility] BMI 2024-02-06 15:41:00 36.34 kg/m2 [facility] Systolic blood pressure 2024-01-22 17:58:00 140 mm[Hg] Manual [facility] Diastolic blood pressure 2024-01-22 17:58:00 90 mm[Hg] Manual [facility] Heart rate 2024-01-22 17:54:00 100 /min [facility] Body temperature 2024-01-22 17:54:00 36.67 Annette [facility] Respiratory rate 2024-01-22 17:54:00 17 /min [facility] Body height 2024-01-22 17:54:00 154.9 cm [facility] Body weight 2024-01-22 17:54:00 86.864 kg [facility] BMI 2024-01-22 17:54:00 36.18 kg/m2 [facility] Systolic blood pressure 2024-01-19 16:36:00 118 mm[Hg] [facility] Diastolic blood pressure 2024-01-19 16:36:00 74 mm[Hg] [facility] Heart rate 2024-01-19 16:36:00 98 /min [facility] Body temperature 2024-01-19 16:36:00 36.72 Annette [facility] Respiratory rate 2024-01-19 16:36:00 20 /min [facility] Oxygen saturation in Arterial blood by Pulse oximetry 2024-01-19 16:36:00 97 /min [facility] Body height 2024-01-13 20:39:00 154.9 cm [facility] Body weight 2024-01-13 20:39:00 96.48 kg [facility] BMI 2024-01-13 20:39:00 40.19 kg/m2 [facility] Systolic blood pressure 2024-01-16 20:30:00 145 mm[Hg] [facility] Diastolic blood pressure 2024-01-16 20:30:00 98 mm[Hg] [facility] Heart rate 2024-01-16 20:30:00 96 /min [facility] Body temperature 2024-01-16 20:30:00 37.39 Annette [facility] Respiratory rate 2024-01-16 20:30:00 20 /min [facility] Oxygen saturation in Arterial blood by Pulse oximetry 2024-01-16 20:30:00 98 /min [facility] Body height 2024-01-13 20:39:00 154.9 cm [facility] Body weight 2024-01-13 20:39:00 96.48 kg [facility] BMI 2024-01-13 20:39:00 40.19 kg/m2 [facility] Systolic blood pressure 2024-01-13 16:13:00 144 mm[Hg] [facility] Diastolic blood pressure 2024-01-13 16:13:00 90 mm[Hg] [facility] Heart rate 2024-01-13 16:08:00 91 /min [facility] Body temperature 2024-01-13 16:08:00 36.56 Annette [facility] Respiratory rate 2024-01-13 16:08:00 18 /min [facility] Body height 2024-01-13 16:08:00 154.9 cm [facility] Body weight 2024-01-13 16:08:00 95.709 kg [facility] BMI 2024-01-13 16:08:00 39.87 kg/m2 [facility] Systolic blood pressure 2023-12-30 15:56:00 138 mm[Hg] [facility] Diastolic blood pressure 2023-12-30 15:56:00 82 mm[Hg] [facility] Heart rate 2023-12-30 15:56:00 92 /min [facility] Body temperature 2023-12-30 15:56:00 36.22 Annette [facility] Respiratory rate 2023-12-30 15:56:00 18 /min [facility] Body height 2023-12-30 15:56:00 154.9 cm [facility] Body weight 2023-12-30 15:56:00 93.072 kg [facility] BMI 2023-12-30 15:56:00 38.77 kg/m2 [facility] Systolic blood pressure 2023-12-16 15:02:00 128 mm[Hg] [facility] Diastolic blood pressure 2023-12-16 15:02:00 89 mm[Hg] [facility] Heart rate 2023-12-16 15:02:00 81 /min [facility] Body temperature 2023-12-16 14:57:00 36.39 Annette [facility] Respiratory rate 2023-12-16 14:57:00 18 /min [facility] Body height 2023-12-16 14:57:00 154.9 cm [facility] Body weight 2023-12-16 14:57:00 84.511 kg [facility] BMI 2023-12-16 14:57:00 35.20 kg/m2 [facility] Systolic blood pressure 2023-12-03 19:45:00 110 mm[Hg] [facility] Diastolic blood pressure 2023-12-03 19:45:00 80 mm[Hg] [facility] Heart rate 2023-12-03 19:36:00 104 /min [facility] Body temperature 2023-12-03 19:36:00 36.56 Annette [facility] Respiratory rate 2023-12-03 19:36:00 19 /min [facility] Body height 2023-12-03 19:36:00 154.9 cm [facility] Body weight 2023-12-03 19:36:00 86.41 kg [facility] BMI 2023-12-03 19:36:00 35.99 kg/m2 [facility] Systolic blood pressure 2023-11-18 16:18:00 132 mm[Hg] [facility] Diastolic blood pressure 2023-11-18 16:18:00 81 mm[Hg] [facility] Heart rate 2023-11-18 16:18:00 101 /min [facility] Body temperature 2023-11-18 16:18:00 36.11 Annette [facility] Respiratory rate 2023-11-18 16:18:00 18 /min [facility] Body height 2023-11-18 16:18:00 154.9 cm [facility] Body weight 2023-11-18 16:18:00 84.641 kg [facility] BMI 2023-11-18 16:18:00 35.26 kg/m2 [facility] Systolic blood pressure 2023-11-04 20:37:00 123 mm[Hg] [facility] Diastolic blood pressure 2023-11-04 20:37:00 82 mm[Hg] [facility] Heart rate 2023-11-04 20:37:00 113 /min [facility] Body temperature 2023-11-04 20:33:00 36.61 Annette [facility] Respiratory rate 2023-11-04 20:33:00 18 /min [facility] Body height 2023-11-04 20:33:00 154.9 cm [facility] Body weight 2023-11-04 20:33:00 83.207 kg [facility] BMI 2023-11-04 20:33:00 34.66 kg/m2 [facility] Systolic blood pressure 2023-09-26 15:22:00 133 mm[Hg] [facility] Diastolic blood pressure 2023-09-26 15:22:00 77 mm[Hg] [facility] Heart rate 2023-09-26 15:22:00 87 /min [facility] Body temperature 2023-09-26 15:22:00 36.61 Annette [facility] Respiratory rate 2023-09-26 15:22:00 18 /min [facility] Body height 2023-09-26 15:22:00 154.9 cm [facility] Body weight 2023-09-26 15:22:00 81.421 kg [facility] BMI 2023-09-26 15:22:00 33.92 kg/m2 [facility] Systolic blood pressure 2023-08-29 14:53:00 120 mm[Hg] [facility] Diastolic blood pressure 2023-08-29 14:53:00 80 mm[Hg] [facility] Heart rate 2023-08-29 14:53:00 70 /min [facility] Body temperature 2023-08-29 14:50:00 36.67 Annette [facility] Respiratory rate 2023-08-29 14:50:00 18 /min [facility] Body height 2023-08-29 14:50:00 154.9 cm [facility] Body weight 2023-08-29 14:50:00 82.64 kg [facility] BMI 2023-08-29 14:50:00 34.42 kg/m2 [facility] Systolic blood pressure 2023-08-08 15:13:00 121 mm[Hg] [facility] Diastolic blood pressure 2023-08-08 15:13:00 75 mm[Hg] [facility] Heart rate 2023-08-08 15:13:00 86 /min [facility] Body temperature 2023-08-08 15:13:00 36.56 Annette [facility] Respiratory rate 2023-08-08 15:13:00 16 /min [facility] Body height 2023-08-08 15:13:00 154.9 cm [facility] Body weight 2023-08-08 15:13:00 80.485 kg [facility] BMI 2023-08-08 15:13:00 33.53 kg/m2 [facility] Systolic blood pressure 2023-07-11 15:21:00 119 mm[Hg] [facility] Diastolic blood pressure 2023-07-11 15:21:00 77 mm[Hg] [facility] Heart rate 2023-07-11 15:21:00 85 /min [facility] Body temperature 2023-07-11 15:21:00 37.06 Annette [facility] Respiratory rate 2023-07-11 15:21:00 16 /min [facility] Body height 2023-07-11 15:21:00 154.9 cm [facility] Body weight 2023-07-11 15:21:00 77.282 kg [facility] BMI 2023-07-11 15:21:00 32.19 kg/m2 [facility] Systolic blood pressure 2023-06-06 14:22:00 124 mm[Hg] [facility] Diastolic blood pressure 2023-06-06 14:22:00 82 mm[Hg] [facility] Heart rate 2023-06-06 14:22:00 83 /min [facility] Body temperature 2023-06-06 14:22:00 36.22 Annette [facility] Respiratory rate 2023-06-06 14:22:00 18 /min [facility] Body height 2023-06-06 14:22:00 154.9 cm [facility] Body weight 2023-06-06 14:22:00 77.384 kg [facility] BMI 2023-06-06 14:22:00 32.23 kg/m2 [facility] Body mass index (BMI) [Percentile] Per age and sex 2023-06-06 14:22:00 95.67 % [facility] Procedures Procedure Date / Time Performed Performing Clinician Source POCT URINALYSIS 2024-07-20 21:16:00 Sharda Guevara [facility] SECOND AND THIRD TRIMESTER ULTRASOUND 2024-07-19 16:11:00 Sharda Guevara [facility] NIPT - NON-INVASIVE TEST RESULTS 2024-06-22 14:43:12 Doctor Unassigned, [place] [facility] POCT URINALYSIS W/O SPECIFIC GRAVITY 2024-05-11 21:57:00 Kayden Sun [facility] FIRST TRIMESTER ULTRASOUND 2024-04-27 21:41:00 Sharda Guevara [facility] COMP. METABOLIC PANEL (99781) 2024-03-30 16:55:00 Sharda Guevara [facility] CBC WITH DIFF 2024-03-30 16:55:00 Sharda Guevara [facility] GLYCOSYLATED HEMOGLOBIN (A1C) 2024-03-30 16:55:00 Sharda Guevara [facility] RUBELLA SCREEN IGG 2024-03-30 16:55:00 Janay Guevara [facility] VZV ANTIBODY SCREEN 2024-03-30 16:55:00 Liliya Guevara [facility] HEPATITIS B SURFACE ANTIGEN 2024-03-30 16:55:00 Sharda Guevara [facility] HCV ANTIBODY 2024-03-30 16:55:00 [facility] ABO GROUPING 2024-03-30 16:55:00 Sharda Guevara [facility] HIV 1/2 AG-AB WITH REFLEX 2024-03-30 16:55:00 Sharda Guevara [facility] SYPHILIS IGG/IGM 2024-03-30 16:55:00 Sharda Guevara [facility] POCT URINALYSIS W/O SPECIFIC GRAVITY 2024-03-30 15:54:00 Sharda Guevara [facility] POCT TEST 2024-03-30 15:46:00 Liliya Guevara [facility] CBC WITH DIFF 2024-01-17 09:31:00 Sergey Linares [facility] CBC WITH DIFF 2024-01-17 09:31:00 Sergey Linares [facility] VENOUS CORD GAS 2024-01-16 18:18:00 Alyssa Murphy [facility] VENOUS CORD GAS 2024-01-16 18:18:00 Alyssa Murphy [facility] [id number] - [place] OB ANTEPARTUM CARE DLVR & 2024-01-16 17:20:00 Faculty, Ob [facility] [id number] - [place] OB ANTEPARTUM CARE DLVR & 2024-01-16 17:20:00 Faculty, Ob [facility] CENTRAL NEURAXIAL BLOCK 2024-01-15 19:54:00 Latosha Pereira [facility] NON-STRESS TEST 2024-01-14 21:59:57 Inocencia Calvo Mai [facility] NON-STRESS TEST 2024-01-14 21:59:57 Inocencia Calvo Mai [facility] HB ABO GROUPING 2024-01-13 21:54:00 [place] [facility] RHO (D) IMMUNE GLOBULIN 2024-01-13 21:54:00 Sourav Nicole uomayra Valencia [facility] HB ABO GROUPING 2024-01-13 21:54:00 [place] [facility] RHO (D) IMMUNE GLOBULIN 2024-01-13 21:54:00 Sourav ruiz Valencia [facility] SGOT (ASPARTATE AMINO TRANSFER) 2024-01-13 21:12:00 [place] [facility] CREATININE 2024-01-13 21:12:00 Mary Jo Ward [facility] ALANINE AMINO TRANSFERASE(SGPT 2024-01-13 21:12:00 [facility] LACTATE DEHYDROGENASE 2024-01-13 21:12:00 StoneAdan [facility] URIC ACID 2024-01-13 21:12:00 [facility] CBC WITH DIFF 2024-01-13 21:12:00 [facility] URINALYSIS 2024-01-13 21:12:00 [facility] HEPATITIS B SURFACE ANTIGEN 2024-01-13 21:12:00 Standing Order, [facility] PROTEIN CREAT RATIO URINE RANDOM 2024-01-13 21:12:00 [place] [facility] HIV 1/2 AG-AB WITH REFLEX 2024-01-13 21:12:00 Standing Order, [facility] SYPHILIS IGG/IGM 2024-01-13 21:12:00 Standing Or chase, [facility] SGOT (ASPARTATE AMINO TRANSFER) 2024-01-13 21:12:00 [facility] CREATININE 2024-01-13 21:12:00 [facility] ALANINE AMINO TRANSFERASE(SGPT 2024-01-13 21:12:00 Ed [facility] LACTATE DEHYDROGENASE 2024-01-13 21:12:00 Adan Ward [facility] URIC ACID 2024-01-13 21:12:00 [facility] CBC WITH DIFF 2024-01-13 21:12:00 [facility] URINALYSIS 2024-01-13 21:12:00 [facility] HEPATITIS B SURFACE ANTIGEN 2024-01-13 21:12:00 Standing Order, [facility] PROTEIN CREAT RATIO URINE RANDOM 2024-01-13 21:12:00 [facility] HIV 1/2 AG-AB WITH REFLEX 2024-01-13 21:12:00 Standing Order, [facility] SYPHILIS IGG/IGM 2024-01-13 21:12:00 Standing Or chase, Physician [facility] POCT URINALYSIS 2024-01-13 16:07:00 Sharda Guevara [facility] POCT URINALYSIS 2023-12-30 15:57:00 Sharda Guevara [facility] POCT URINALYSIS 2023-12-16 15:00:00 Sharda Guevara [facility] POCT URINALYSIS 2023-12-03 19:45:00 Sharda Guevara [facility] POCT URINALYSIS 2023-11-18 16:20:00 Sharda Guevara [facility] TDAP VACCINE, >11 YRS, IM 2023-11-18 16:15:18 Sharda Guevara [facility] POCT URINALYSIS 2023-11-04 21:29:00 Sharda Guevara [facility] SECOND AND THIRD TRIMESTER ULTRASOUND 2023-09-30 15:35:00 Sharda Guevara [facility] POCT URINALYSIS 2023-09-26 15:23:00 Sharda Guevara [facility] POCT URINALYSIS 2023-08-29 14:56:00 Sharda Guevara [facility] NIPT - NON-INVASIVE TEST RESULTS 2023-08-21 18:18:50 Doctor Unassigned, [place] [facility] NIPT - NON-INVASIVE TEST RESULTS 2023-08-18 13:55:45 Doctor Unassigned, [place] [facility] POCT URINALYSIS 2023-08-08 15:51:00 Sharda Guevara [facility] FIRST TRIMESTER ULTRASOUND 2023-07-17 16:36:01 Sharda Guevara [facility] POCT URINALYSIS 2023-07-11 15:21:00 Sharda Guevara [facility] POCT TEST 2023-06-06 14:15:00 Adonay Serrano [facility] POCT URINALYSIS W/O SPECIFIC GRAVITY 2023-06-06 14:15:00 Laith Serrano [facility] ASSIGNMENT OF BENEFITS 2023-06-06 14:04:20 Docto r Unassigned, [place] [facility] Encounters Start Date/Time End Date/Time Encounter Type Admission Type Attending [facility] Emergency Department Facility Care Department Encounter ID Source 2024-07-22 07:15:00 2024-07-22 07:30:00 Rubber Heel And Sole Press Tender Visit Lab, [facility] Sharda Guevara Lab, [facility] 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 [facility] & CHILD [facility] ..840.114 350.1.13.10 4.2.7.2.686 [id number] [facility] 2024-07-22 07:15:00 2024-07-22 07:15:00 Outpatient R SHARDA GUEVARA [facility] [id number] [facility] 2024-07-20 15:15:00 2024-07-20 15:47:47 Outpatient R SHARDA GUEVARA [facility] [id number] [facility] 2024-07-20 15:15:00 2024-07-20 15:47:47 Routine Visit Sharda Guevara [facility] [[email or web address]] 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 [facility] & CHILD [facility] 1..840.114 350.1.13.10 4.2.7.2.686 [id number] [facility] 2024-07-20 00:00:00 2024-07-20 11:45:40 Abstract Sharda Guevara [facility] [[email or web address]] 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 [facility] CHILD [facility] 1..840.114 350.1.13.10 4.2.7.2.686 [id number] [facility] 2024-07-19 10:15:00 2024-07-19 13:12:03 Outpatient LATONYA LITTLE SHANNON [facility] [id number] [facility] 2024-07-19 10:15:00 2024-07-19 13:12:03 Rubber Heel And Sole Press Tender Visit Ultrasound, Latonya Maxwell [facility] [[email or web address]] 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 [facility] 1..840.114 350.1.13.10 4.2.7.2.686 [id number] [facility] 2024-07-19 13:00:00 2024-07-19 13:00:00 Outpatient R [facility] [id number] [facility] 2024-07-13 08:15:00 2024-07-13 08:15:00 Outpatient R SHARDA GUEVARA [facility] [id number] [facility] 2024-06-22 00:00:00 2024-06-23 02:04:45 Orders Only Doctor Unassigned, [place] Doctor Unassigned, [place] [facility] ([facility]) ..840.114 350.1.13.10 4.2.7.2.686 [id number] [facility] 2024-06-15 06:45:00 2024-06-15 07:31:54 Outpatient R SHARDA GUEVARA [facility] [id number] [facility] 2024-06-08 10:45:00 2024-06-08 10:45:00 Outpatient R KAYDEN SUN EMILY [facility] [id number] [facility] 2024-06-01 00:00:00 2024-06-01 11:56:04 Case Management Kayden Sun [facility] ([facility]) ..840.114 350.1.13.10 4.2.7.2.686 [id number] [facility] 2024-05-28 10:00:00 2024-05-28 13:21:48 Outpatient USAMA LOPEZ [facility] [id number] [facility] 2024-05-28 10:00:00 2024-05-28 13:21:48 Telemedici ne Visit Fellow, [facility] Usama Gavin Fellow, [facility] ([facility]) 1.2.840.114 350.1.13.10 4.2.7.2.686 [id number] [facility] 2023-08-18 00:00:00 2024-05-15 07:45:11 Orders Only Doctor Unassigned, [place] Doctor Unassigned, [place] [facility] [[email or web address] [place] ([place]) 1.2.840.114 350.1.13.10 4.2.7.2.686 [id number] [facility] 2023-08-21 00:00:00 2024-05-15 07:43:05 Orders Only Doctor Unassigned, [place] Doctor Unassigned, [place] [facility] ([facility]) 1.2840.114 350.1.13.10 4.2.7.2.686 [id number] [facility] 2024-05-11 15:45:00 2024-05-11 16:21:17 Outpatient R KAYDEN SUN [facility] [id number] [facility] 2024-05-11 15:45:00 2024-05-11 16:21:17 Routine Visit Kayden Sun [facility] ([facility]) 1.2.0.114 350.1.13.10 4.2.7.2.686 [id number] [facility] 2024-05-04 06:45:00 2024-05-04 06:45:00 Outpatient R SHARDA GUEVARA [facility] [id number] [facility] 2024-04-27 00:00:00 2024-04-27 16:49:07 Sharda Esparza [facility] [[email or web address]] 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 [facility] 1.2.840.114 350.1.13.10 4.2.7.2.686 [id number] [facility] 2024-04-27 15:15:00 2024-04-27 15:58:36 Outpatient P KAYLEE LE FARANAK [facility] [id number] [facility] 2024-04-27 15:15:00 2024-04-27 15:58:36 Rubber Heel And Sole Press Tender Visit 3, [facility] Mf Usg Room Kaylee Le 3, [facility] Mf Usg Room [facility] [[email or web address] [place] ([facility]) 1.2840.114 350.1.13.10 4.2.7.2.686 [id number] [facility] 2024-03-15 00:00:00 2024-04-17 18:19:53 Patient Secure Msg Sharda Guevara [facility] 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 [facility] & CHILD [facility] 1.20.114 350.1.13.10 4.2.7.2.686 [id number] [facility] 2024-03-30 09:15:00 2024-03-30 10:56:16 Outpatient R SHARDA GUEVARA [facility] [id number] [facility] 2024-03-30 09:15:00 2024-03-30 10:56:16 Initial Visit Sharda Guevara [facility] [[email or web address]] 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 [facility]ILD [facility] 1.2840.114 350.1.13.10 4.2.7.2.686 [id number] [facility] 2024-03-04 00:00:00 2024-03-04 07:00:43 Refill Sharda Guevara [facility] [[email or web address]] 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 [facility] & CHILD [facility] 1.2.840.114 350.1.13.10 4.2.7.2.686 [id number] [facility] 2024-01-24 00:00:00 2024-02-28 18:24:24 Patient Secure Msg Sharda Guevara [facility] [[email or web address]] 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 [facility] & CHILD [facility] 1.2.840.114 350.1.13.10 4.2.7.2.686 [id number] [facility] 2024-02-17 07:00:00 2024-02-17 07:00:00 Outpatient SHARDA BOLTON [facility] [id number] [facility] 2024-02-06 09:00:00 2024-02-06 10:18:37 Routine Visit Sharda Guevara [facility] [[email or web address]] 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 [facility] CHILD [facility] 1.2.840.114 350.1.13.10 4.2.7.2.686 [id number] [facility] 2024-02-06 09:00:00 2024-02-06 10:18:37 Outpatient SHARDA BOLTON [facility] [id number] [facility] 2024-01-22 14:00:00 2024-01-22 14:15:00 [facility] Visit, Andrésshanel Nurse [facility] [[email or web address]] 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 [facility] CHILD [facility] 1.2.840.114 350.1.13.10 4.2.7.2.686 [id number] [facility] 2024-01-22 14:00:00 2024-01-22 14:00:00 Outpatient R SHARDA GUEVARA [facility] [id number] [facility] 2024-01-13 15:07:00 2024-01-19 14:49:00 Inpatient BRADLEY HILLIARD, BRADLEY FARNSWORTH [facility] [[email or web address] KRISTA [id number] [facility] 2024-01-13 15:07:00 2024-01-19 14:49:00 Hospital Encounter Ayaz Lambert Sangeeta [facility] ([facility]) 1.2.840.114 350.1.13.10 4.2.7.2.686 [id number] [facility] 2024-01-16 15:20:00 2024-01-16 17:16:00 Surgery Faculty, Ob [facility] ([place]) 1.2.840.114 350.1.13.10 4.2.7.2.686 [id number] [facility] 2024-01-15 14:30:00 2024-01-15 14:30:00 Anesthesia Event Latosha Pereira Ryan C S [facility] ([place]) 1.2.840.114 350.1.13.10 4.2.7.2.686 [id number] [facility] 2024-01-13 11:00:00 2024-01-13 11:33:27 Outpatient R SHARDA GUEVARA [facility] [id number] [facility] 2024-01-13 11:00:00 2024-01-13 11:33:27 Routine Visit Sharda Guevara [facility] [[email or web address]] 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 [facility] 1.2.840.114 350.1.13.10 4.2.7.2.686 [id number] [facility] 2023-12-30 11:00:00 2023-12-30 11:21:36 Outpatient R SHARDA GUEVARA [facility] [id number] [facility] 2023-12-30 11:00:00 2023-12-30 11:21:36 Routine Visit Sharda Guevara [facility] [[email or web address]] 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 [facility] 1.2.840.114 350.1.13.10 4.2.7.2.686 [id number] [facility] 2023-12-16 10:00:00 2023-12-16 10:46:16 Outpatient R SHARDA GUEVARA [facility] [id number] [facility] 2023-12-16 10:00:00 2023-12-16 10:46:16 Routine Visit Sharda Guevara [facility] [[email or web address]] 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 [facility] CHILD [facility] 1.840.114 350.1.13.10 4.2.7.2.686 [id number] [facility] 2023-12-03 14:15:00 2023-12-03 14:30:00 Routine Visit Laiht Serrano [facility] [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 1.0.114 350.1.13.10 4.2.7.2.686 [id number] [facility] 2023-12-03 14:15:00 2023-12-03 14:15:00 Outpatient R LAITH SERRANO [facility] [id number] [facility] 2023-11-18 11:00:00 2023-11-18 11:42:45 Outpatient R SHARDA GUEVARA [facility] [id number] [facility] 2023-11-18 11:00:00 2023-11-18 11:42:45 Routine Visit Sharda Guevara [facility] [[email or web address]] 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 ..114 350.1.13.10 4.2.7.2.686 [id number] [facility] 2023-11-07 07:45:00 2023-11-07 10:24:13 Rubber Heel And Sole Press Tender [facility] 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 [facility] CHILD [facility] 1.840.114 350.1.13.10 4.2.7.2.686 [id number] [facility] 2023-11-07 07:45:00 2023-11-07 07:45:00 Outpatient R SHARDA GUEVARA [facility] [id number] [facility] 2023-11-06 00:00:00 2023-11-06 12:53:17 Telephone Sharda Guevara [facility] [[email or web address]] 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 [facility] CHILD [facility] 1..840.114 350.1.13.10 4.2.7.2.686 [id number] [facility] 2023-11-05 13:15:00 2023-11-05 14:04:34 Outpatient SHARDA BOLTON [facility] [id number] [facility] 2023-11-05 13:15:00 2023-11-05 14:04:34 Rubber Heel And Sole Press Tender [facility], [facility] 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 [facility] CHILD [facility] 1..840.114 350.1.13.10 4.2.7.2.686 [id number] [facility] 2023-11-04 15:30:00 2023-11-04 16:36:47 Outpatient SHARDA BOLTON [facility] [id number] [facility] 2023-11-04 15:30:00 2023-11-04 16:36:47 Routine Visit Sharda Guevara [facility] [email or web address] 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 [facility] ..840.114 350.1.13.10 4.2.7.2.686 [id number] [facility] 2023-10-29 07:00:00 2023-10-29 07:00:00 Outpatient [facility] [id number] [facility] 2023-10-23 10:30:00 2023-10-23 10:30:00 Outpatient [facility] [id number] [facility] 2023-10-01 00:00:00 2023-10-01 06:56:58 Case Management Sharda Guevara [facility] [email or web address] 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 [facility] 1.20.114 350.1.13.10 4.2.7.2.686 [id number] [facility] 2023-09-30 09:45:00 2023-09-30 11:19:25 Rubber Heel And Sole Press Tender Visit Ultrasound, [facility] [[email or web address] 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 [facility] 1.0.114 350.1.13.10 4.2.7.2.686 [id number] [facility] 2023-09-30 09:45:00 2023-09-30 11:19:25 Outpatient P [facility] [id number] [facility] 2023-09-26 10:15:00 2023-09-26 10:40:53 Outpatient R [facility]DA [facility] [id number] [facility] 2023-09-26 10:15:00 2023-09-26 10:40:53 Routine Visit Sharda Guevara [facility] [email or web address] 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 [facility] 1.840.114 350.1.13.10 4.2.7.2.686 [id number] [facility] 2023-08-29 09:45:00 2023-08-29 10:27:04 Outpatient R [facility]DA [facility] [id number] [facility] 2023-08-29 09:45:00 2023-08-29 10:27:04 Routine Visit DoritaSharda [facility] [[email or web address]] 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 [facility] 1.840.114 350.1.13.10 4.2.7.2.686 [id number] [facility] 2023-08-08 10:15:00 2023-08-08 10:40:34 Outpatient R ISMAEL SHARDA [facility] [id number] [facility] 2023-08-08 10:15:00 2023-08-08 10:40:34 Routine Visit Ismael Sharda Lopez [facility] [[email or web address]] 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 [facility] [id number] 350.1.13.10 4.2.7.2.686 [id number] [facility] 2023-07-17 11:30:00 2023-07-17 11:30:00 Rubber Heel And Sole Press Tender Visit Ultrasound, Latonya Maxwell [facility] [[email or web address]] 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 [facility] 1.2840.114 350.1.13.10 4.2.7.2.686 [id number] [facility] 2023-07-17 11:30:00 2023-07-17 11:26:28 Outpatient P LATONYA ADEN SHANNON [facility] [id number] [facility] 2023-07-17 00:00:00 2023-07-17 00:00:00 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 [id number] 350.1.13.10 [id number] [id number] [facility] 2023-07-11 09:30:00 2023-07-11 10:34:04 Outpatient R SHARDA GUEVARA [facility] [id number] [facility] 2023-07-11 09:30:00 2023-07-11 10:34:04 Routine Visit Sharda Guevara [facility] [[email or web address]] 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 [facility] [id number] 350.1.13.10 4.2.7.2.686 [id number] [facility] 2023-07-04 08:45:00 2023-07-04 08:45:00 Outpatient R SHARDA GUEVARA [facility] [id number] [facility] 2023-06-16 00:00:00 2023-06-16 00:00:00 Telephone Sharda Guevara [facility] [[email or web address]] 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 [facility] [id number] 350.1.13.10 4.2.7.2.686 [id number] [facility] 2023-06-06 08:15:00 2023-06-06 08:57:57 Outpatient R SHARDA GUEVARA [facility] [id number] [facility] 2023-06-06 08:15:00 2023-06-06 08:57:57 Initial Visit Sharda Guevara [facility] [[email or web address]] 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 [facility] [id number] 350.1.13.10 4.2.7.2.686 [id number] [facility] 2023-06-06 08:15:00 2023-06-06 08:57:57 Outpatient R SHARDA GUEVARA [facility] [id number] [facility] 2023-06-06 00:00:00 2023-06-06 00:00:00 Orders Only Doctor Unassigned, [place] [facility] [id number] 350.1.13.10 4.2.7.2.686 [id number] [facility] 2022-11-16 10:42:52 2022-11-16 10:42:52 Outpatient [facility] [address] 2022-11-01 08:51:57 2022-11-01 08:51:57 Outpatient [facility] [address] Results Test Description Test Time Test Comments Results Result Co mments Source [facility] - NON-INVASIVE TEST RESULTS 2024-06-22 14:43:12Ordered by an unspecified provider.[facility] w/o Specific [id number] 21:58:00* Test Item Value Reference Range Interpretation Comme nts POCT PH U (test code = 3254) 6.5 mg/dl 5-8 POCT U LEUK EST (test code = 3263) ++ Mod Negative - Negative POCT U NIT (test code = 3262) negative Negative - Negati ve POCT U PROT (test code = 3259) 30 Negative - Negat darline POCT U GLU (test code = 3256) normal Negative - Negati ve POCT U KETONE (test code = 3258) trace Negative - Negative POCT U BLD (test code = 3257) negative Negative - Negati ve Lab Interpretation (test cod e = 41950-2) Abnormal [facility] Center[facility] SCRE[facility] (NELDA) [id number] 20:50:48 * Test Item Value Reference Range Interpretation Comme [facility] Rubella screen IgG (test code = 4938209340) Positive Negative IVAN (test code = IVAN) Positive - Indicat es the patient was exposed to Rubella through infection or vaccination.Negative - Indicates the patient could be susceptible to Rubella infection.Equivocal - A second specimen should be sent. [facility] [id number] 20:50:48* Test Item Value Reference Range Interpretation Comme [facility] VZV IgG antibody (test code = 88951-1) Positive Negative IVAN (test code = IVAN) Positive - Indicat es the patient was exposed to VZV through infection or vaccination.Negative - Indicates the patient could be susceptible to VZV infection.Equivocal - A second specimen should be sent for testing. [facility] CenterGAL ONLY - SYPHILIS IGG/[id number] 18:02:24* Test Item Value Reference Range Interpretation Comme [facility] Syphilis IgG/IgM (test code = 79643-9) Nonreactive Nonreactive Syphilis Serology Interpretation (test code = 49284-9) No serologic evidence of syphilis. If recent exposure is suspected, retest in 2 to 4 weeks. IVAN (test code = IVAN) ? [facility] Center[facility]2 AG-AB WITH [id number] 05:09:33* Test Item Value Reference Range Interpretation Comme [facility] HIV Semi-quantitative (test code = 53713-1) 0.12 Negative IVAN (test code = IVAN) Non-reactive for HIV-1 antigen and HIV-1/HIV-2 antibodies. ?No laboratory evidence of HIV infection. ?Repeat in 2-4 weeks if acute HIV infection is suspected. [facility] CenterHCV [id number] 04:13:05* Test Item Value Reference Range Interpretation Comme nts HCV Ab (test code = 53218-0) Negative HCV Semi-Quantitative (test code = 96378-2) 0.01 [facility] CenterHEPATITIS B SURFACE [id number] 03:55:45 * Test Item Value Reference Range Interpretation Comme nts HBsAg Semi-Quantitative (pardeep t code = 5195-3) 0.10 Negative [facility] CenterGlycosylated Hemoglobin (A1C)2024-03-31 03:30:07* Test Item Value Reference Range Interpretation Comme nts HGB A1C (test code = 4548-4) 5.0 % 4.0-5.7 IVAN (test code = IVAN) Reference RangesNormal: <5.7%Prediabetes: 5.7 - 6.4%Diabetes: > 6.5% Lab Interpretation (test code = 52149-7) Normal [facility] CenterComp. Metabolic Panel (57614)2024-03-31 03:19:22* Test Item Value Reference Range Interpretation Comme nts NA (test code = 2472119991) 139 mmol/L 135-145 K (test code = 1069110686) 4.8 mmol/L 3.5-5.0 CL (test code = 4877009725) 110 mmol/L 98-108 H CO2 TOTAL (test code = 1266790295) 24 mmol/L 23-31 AGAP (test code = 2713554370) 5 2-16 BUN (test code = 4078113937) 8 mg/dL 7-23 GLUCOSE (test code = 5299897785) 95 mg/dL 70-110 CREATININE (test code = 2160-0) 0.63 mg/dL 0.50-1.04 TOTAL BILI (test code = 5576910430) 0.7 mg/dL 0.1-1.1 CALCIUM (test code = 8971096521) 9.9 mg/dL 8.6-10.6 T PROTEIN (test code = 1985494357) 7.7 g/dL 6.3-8.2 ALBUMIN (test code = 9977539957) 4.6 g/dL 3.5-5.0 ALK PHOS (test code = 4698954788) 96 U/L 34-122 ALTv (test code = 1742-6) 45 U/L 5-35 H AST(SGOT) (test code = 1368756462) 35 U/L 13-40 eGFR (test code = 68898-6) 131.2 mL/min/1.73m2 CKD-EPI eGFR (2020). Assuming creatinine has been stable day-to-day for at least three months, the eGFR indicates Category G1 (>= 90 mL/min/1.73 m2) Lab Interpretation (test code = 76350-2) Abnormal [facility] CenterCB WITH [id number] 03:17:46* Test Item Value Reference Range Interpretation Comme nts WBC (test code = 6690-2) 11.62 4.30-11.10 H RBC (test code = 789-8) 5.16 3.93-5.25 HGB (test code = 718-7) 12.8 g/dL 11.6-15.0 HCT (test code = 4544-3) 41.2 % 35.7-45.2 MCV (test code = 787-2) 79.8 fL 80.6-95.5 L MCH (test code = 785-6) 24.8 pg 25.9-32.8 L MCHC (test code = 786-4) 31.1 g/dL 31.6-35.1 L RDW-SD (test code = 83496-6) 46.4 fL 39.0-49.9 RDW-CV (test code = 788-0) 16.1 % 12.0-15.5 H PLT (test code = 777-3) 415 166-358 H MPV (test code = 39297-3) 10.6 fL 9.5-12.9 NRBC/100 WBC (test code = 9140049184) 0.0 0.0-10.0 NRBC x10^3 (test code = 5882559461) See_Comment [Automated WriteOna ge] The system which generated this result transmitted reference range: 10*3/?L. The reference range was not used to interpret this result as normal/abnormal. GRAN MAT (NEUT) % (test code = 770-8) 77.0 % IMM GRAN % (test code = 4090161652) 0.40 % LYMPH % (test code = 736-9) 12.5 % MONO % (test code = 5905-5) 7.8 % EOS % (test code = 713-8) 2.1 % BASO % (test code = 706-2) 0.2 % GRAN MAT x10^3(ANC) (test code = 0112017464) 8.95 10*3/uL 1.88-7.09 H IMM GRAN x10^3 (test code = 2250300397) 0.05 10*3/uL 0.00-0.06 LYMPH x10^3 (test code = 731-0) 1.45 10*3/uL 1.32-3.29 MONO x10^3 (test code = 742-7) 0.91 10*3/uL 0.33-0.92 EOS x10^3 (test code = 711-2) 0.24 10*3/uL 0.03-0.39 BASO x10^3 (test code = 704-7) 0.01-0.07 Lab Interpretation (test code = 54102-9) Abnormal [facility] CenterPRENATAL WORKUP, BLOOD [id number] 17:31:00 * Test Item Value Reference Range Interpretation Comme nts ABO & RH (test code = 20) A POSITIVE IAT (test code = 1185) Negative [facility] CenterPOCT Urinalysis w/o Specific [id number] 15:54:00* Test Item Value Reference Range Interpretation Comme [...] None Negative - Neg ative POCT U BLD (test code = 3257) Neg Negative - Negati ve [facility] CenterPOCT [id number] 15:46:00* Test Item Value Reference Range Interpretation Comme nts POCT PREG (test code = 1605) Positive On board controls acceptable with C Line (test code = 3574) Yes POCT PREG LOT # (test code = 3575) POCT PREG TEST DATE ( test code = 3576) [facility] (D) IMMUNE [id number] 21:22:05* Test Item Value Reference Range Interpretation Comme nts RHIG CANDIDATE? (test code = 5188) No- see comment Patient is not a candidate for RhIg- Patient is Rh Positive.Performed at [facility] [[email or web address]] Laboratory Services [facility] Blood [address] [address]Hmdc Free: [phone] No. [id number] [facility] () IMMUNE [id number] 21:22:05* Test Item Value Reference Range Interpretation Comme nts RHIG CANDIDATE? (test code = 5188) No- see comment Patient is not a candidate for RhIg- Patient is Rh Positive.Performed at [facility] [[email or web address]] Laboratory Services [facility] Blood [address] [address]Rbpt Free: [phone] No. [id number] [facility] Cord [id number] 18:41:22* Test Item Value Reference Range Interpretation Comme nts VENOUS BASE EXCESS, CORD (te st code = 2009348434) -0.8 mEq/L VENOUS PH, CORD (test code = 2893926861) 7.40 7.25-7.45 VENOUS PC02, CORD (test code = 1136835467) 39 27-49 VENOUS PO2, CORD (test code = 8844218811) 26 17-41 VENOUS BICARBONATE, CORD (te st code = 5962095796) 24 12-29 [facility] Cord [id number] 18:41:22* Test Item Value Reference Range Interpretation Comme nts VENOUS BASE EXCESS, CORD (te st code = 5667011270) -0.8 mEq/L VENOUS PH, CORD (test code = 3168534195) 7.40 7.25-7.45 VENOUS PC02, CORD (test code = 5043323067) 39 27-49 VENOUS PO2, CORD (test code = 9242173201) 26 17-41 VENOUS BICARBONATE, CORD (te st code = 5824778040) 24 12-29 [facility] [id number] 19:54:00 Latosha Pereira MD ? ? 01/15/2024 ?2:55 PM Central Neuraxial Block Date/Time: 01/15/2024 2:54 PM Performed by: Latosha Pereira MDAuthorized by: Ronak Mccnonell MD ?Patient Location: OBReasonfor Block: Labor analgesia, OB request, Patient request, Surgical anesthesia and Post-op pain managementStaff: ?Anesthesiologist: Ronak Mcconnell MD ?Resident/SHANK SKINNER: Latosha Pereira MD ?Performedby: resident/CRNAPreanesthetic Checklist: patient [...] ?Patient Position: sitting ?Prep: Betadine ? ?Monitoring: dean of graduate studies / EKG, heart rate / toco, heart rate, NIBP and continuous pulse ox ?Location: lumbar (1-5) ?Lumbar: L3-L4 ?Approach: midline ? ?Technique: single shot ?Guidance with: landmark technique}Epidural/Spinal [place] and/or Catheter: ?Epidural/Spinal Kit: BBraun ?Needle Type:Tuohy [...] Lockout: 15 min Latosha Pereira MD, PGY-4Dept. Faiexodbvmfbvc23/17/2024 2:[facility] [id number] 22:05:00* Test Item Value Reference Range Interpretation Comme nts ABO & RH (test code = 20) A POSITIVE IAT (test code = 1185) Negative [facility] and Screen - ONCE [id number] 22:05:00* Test Item Value Reference Range Interpretation Comme nts ABO & RH (test code = 20) A POSITIVE IAT (test code = 1185) Negative [facility] URINALYSIS W SPECIFIC [id number] 16:07:00* Test Item Value Reference Range Interpretation [...] U APPEAR (test code = 3267) . [facility] URINALYSIS W SPECIFIC [id number] 15:57:00* Test Item Value Reference Range Interpretation [...] U APPEAR (test code = 3267) . [facility] URINALYSIS W SPECIFIC [id number] 15:00:00* Test Item Value Reference Range Interpretation [...] U APPEAR (test code = 3267) .... [facility] URINALYSIS W SPECIFIC [id number] 19:45:00* Test Item Value Reference Range Interpretation [...] POCT U APPEAR (test code = 3267) [facility] URINALYSIS W SPECIFIC [id number] 16:21:00* Test Item Value Reference Range Interpretation [...] U APPEAR (test code = 3267) . [facility] URINALYSIS W SPECIFIC [id number] 21:29:00* Test Item Value Reference Range Interpretation [...] U APPEAR (test code = 3267) ... [facility] URINALYSIS W SPECIFIC [id number] 15:23:00* Test Item Value Reference Range Interpretation [...] U APPEAR (test code = 3267) . [facility] URINALYSIS W SPECIFIC [id number] 14:57:00* Test Item Value Reference Range Interpretation [...] POCT U APPEAR (test code = 3267) [facility] - NON-INVASIVE TEST RESULTS 2023-08-21 18:18:50Ordered by an unspecified provider.[facility] - NON-INVASIVE TEST [id number] 13:55:45 Ordered by an unspecified provider.[facility] URINALYSIS W SPECIFIC [id number] 15:52:00* Test Item Value Reference Range Interpretation [...] U APPEAR (test code = 3267) . [facility] URINALYSIS W SPECIFIC [id number] 15:22:00* Test Item Value Reference Range Interpretation [...] POCT U APPEAR (test code = 3267) [facility] Urinalysis w/o Specific [id number] 14:16:00* Test Item Value Reference Range Interpretation [...] = 3257) neg Negative - Negati ve [facility] Urinalysis w/o Specific [id number] 14:16:00* Test Item Value Reference Range Interpretation [...] = 3257) neg Negative - Negati ve [facility] [id number] 14:15:00* Test Item Value Reference Range Interpretation Comme nts POCT PREG (test code = 1605) Positive On board controls acceptable with C Line (test code = 3574) Yes POCT PREG LOT # (test code = 3575) POCT PREG TEST DATE ( test code = 3576) [facility] [id number] 14:15:00* Test Item Value Reference Range Interpretation Comme nts POCT PREG (test code = 1605) Positive On board controls acceptable with C Line (test code = 3574) Yes POCT PREG LOT # (test code = 3575) POCT PREG TEST DATE ( test code = 3576) [facility] History and Physical Notes Date/Time Note Provider Source 2024-01-13 15:16:15 TRIAGE HISTORY & PHYSICAL IDENTIFYING DATA Cj Caceres is 18 year old, /White, 36w5d, female with KYARA 02/05/2024, by Last Menstrual Period. : 2004 Primary Care Physician: Sharda Guevara CHIEF COMPLAINT Sent from clinic HISTORY OF [...] in third trimester, antepartum ASSESSMENT AND PLAN Cj Caceres is a 18 year old at [...] on 11/05/23 - PP [facility]: [facility] - Presentation on admission: cephalic, DVP6.5cm, EFW 3394g (86%ile) - anterior placenta - FHT reactive - Normal anatomy scan Placenta Accreta Screening Prior ? : No Prior Uterine Surgery?: No Placenta low lying/previa in current ? : No Screening outcome: Negative screening. PLAN: serial bp's, labs Mary Jo Ward APRN, BRYAN- Informed consent discussed with the patient, including: [...] care with the residents. Ayaz Lambert MD [facility] Procedure Notes Date/Time Note Provider Source 2024-01-15 14:54:48 Associated Order(s): Central Neuraxial Block Central Neuraxial Block Date/Time: 01/15/2024 2:54 PM Performed by: Latosha Pereira MD Authorized by: Ronak Mcconnell MD Patient Location: OB Reason for Block: Labor analgesia, OB request, Patient request, Surgical anesthesia and Post-op pain management Staff: Anesthesiologist: Ronak Mcconnell MD Resident/SHANK SKINNER: Latosha Pereira MD Performed by: resident/SHANK SKINNER Preanesthetic Checklist: patient identified, IV checked, risks and benefits explained, monitors and equipment checked, timeout performed, pre-op evaluation, surgical consent, site marked, ob/surgical consent approval, ob/surgical consent verified and anesthesia consent Procedure: Type of Neuraxial: Epidural Epidural Description: 1st attempt Sterility Prep cap, drape, gloves, hand hygiene and mask Sedation Level no sedation Patient Position: sitting Prep: Betadine Monitoring: dean of graduate studies / EKG, heart rate / toco, heart rate, NIBP and continuous pulse ox Location: lumbar (1-5) Lumbar: L3-L4 Approach: midline Technique: single shot Guidance with: landmark technique} Epidural/Spinal [place] and/or Catheter: Epidural/Spinal Kit: BBraun Needle Type: Tuohy Needle Gauge: 17 G [...] PGY-4 Dept. Anesthesiology 01/15/2024 2:54 PM ANESTHESIOLOGY [facility] 2024-01-15 01:34:06 Cj Caceres is a 18 year old female [...] MD 01/15/2024 1:34 AM OBSTETRICS & GYNECOLOGY [facility] Notes Date/Time Note Provider Source 2024-01-19 12:22:34 Problem: Complications of preeclampsia/eclampsia (risk or actual) Goal: Absence of seizure activity Outcome: Adequate for discharge Goal: Absence of signs and symptoms of preeclampsia Outcome: Adequate for discharge Problem: Falls, Risk of Goal: Absence of falls Outcome: Adequate for discharge Problem: Discharge Planning - Goal: Adequate for discharge Outcome: Adequate for discharge Goal: Mood stable Outcome: Adequate for discharge Problem: Pain Goal: Control of pain at or below patient's documented comfort goal Outcome: Adequate for discharge Goal: Reduction in pain sensation Outcome: Adequate for discharge Problem: Breast-feeding - Ineffective Goal: Effective breast-feeding Outcome: Adequate for discharge T [facility] 2024-01-19 06:11:28 Problem: Complications of preeclampsia/eclampsia (risk or actual) Goal: Absence of seizure activity Outcome: Progressing as expected Goal: Absence of signs and symptoms of preeclampsia Outcome: Progressing as expected Problem: Falls, Risk of Goal: Absence of falls Outcome: Progressing as expected Problem: Discharge Planning - Goal: Adequate for discharge Outcome: Progressing as expected Goal: Mood stable Outcome: Progressing as expected Problem: Pain Goal: Control of pain at or below patient's documented comfort goal Outcome: Progressing as expected Goal: Reduction in pain sensation Outcome: Progressing as expected Problem: Breast-feeding - Ineffective Goal: Effective breast-feeding Outcome: Progressing as expected Deanna Hare RN [facility] 2024-01-18 15:31:36 Problem: Complications of preeclampsia/eclampsia (risk or actual) Goal: Absence of seizure activity Outcome: Progressing as expected Goal: Absence of signs and symptoms of preeclampsia Outcome: Progressing as expected Problem: Falls, Risk of Goal: Absence of falls Outcome: Progressing as expected Problem: Discharge Planning - Goal: Adequate for discharge Outcome: Progressing as expected Goal: Mood stable Outcome: Progressing as expected Problem: Pain Goal: Control of pain at or below patient's documented comfort goal Outcome: Progressing as expected Goal: Reduction in pain sensation Outcome: Progressing as expected Problem: Breast-feeding - Ineffective Goal: Effective breast-feeding Outcome: Progressing as expected [facility] [employer] 2024-01-18 05:16:47 Problem: Complications of preeclampsia/eclampsia (risk or actual) Goal: Absence of seizure activity Outcome: Progressing as expected Goal: Absence of signs and symptoms of preeclampsia Outcome: Progressing as expected Problem: Falls, Risk of Goal: Absence of falls Outcome: Progressing as expected Problem: Discharge Planning - Goal: Adequate for discharge Outcome: Progressing as expected Goal: Mood stable Outcome: Progressing as expected Problem: Pain Goal: Control of pain at or below patient's documented comfort goal Outcome: Progressing as expected Goal: Reduction in pain sensation Outcome: Progressing as expected Problem: Breast-feeding - Ineffective Goal: Effective breast-feeding Outcome: Progressing as expected [facility] [employer] 2024-01-17 17:18:13 Problem: Complications of preeclampsia/eclampsia (risk or actual) Goal: Absence of seizure activity Outcome: Progressing as expected Goal: Absence of signs and symptoms of preeclampsia Outcome: Progressing as expected Problem: Falls, Risk of Goal: Absence of falls Outcome: Progressing as expected Problem: Discharge Planning - Goal: Adequate for discharge Outcome: Progressing as expected Goal: Mood stable Outcome: Progressing as expected Problem: Pain Goal: Control of pain at or below patient's documented comfort goal Outcome: Progressing as expected Goal: Reduction in pain sensation Outcome: Progressing as expected Problem: Breast-feeding - Ineffective Goal: Effective breast-feeding Outcome: Progressing as expected [facility] 2024-01-17 13:45:00 Images from the original note were not included. This note was copied from a baby's chart. Assessment (most recent) Assessment - 01/17/24 1345 General Information Visit Consult Mom's age (years) 18 years Gestational age 37.1 weeks 1 Parity 1 Living Children 1 Feeding plan Breast Planned maternity leave Stay at home mom Breast Pump Ordered Delivery method Breast changes during Darkening of areola leaked Periods Regular Risk factors PIH Infant Oral Assessment Oral assessment Deferred Date of 01/16/24 Time of 1309 location NICU Breast Assessment Breast Assessment Initial Symmetry Symmetrical Size S (AA-A) Shape Rounded Other Soft Nipple & Areola Assessment Left Areola Pliable Right Areola Pliable Left Nipple Colostrum visible;Flat Right Nipple Colostrum visible;Flat Literature Resources Resources -- expressing milk for your NICU baby Education Benefits of breastmilk;Early term/ feeding patterns;Maternal nutrition/hydration;Positi on changes;Pump frequency;Use/settings of pump;Storage of expressed breastmilk;Labeling of expressed breastmilk;Cleaning of pump parts;Lactogenesis Family Intervention Specialist Observation Pumping Yes many drops Reported states she tried once and baby was too tired to latch Follow up -- LC will follow up friday if in house Recommended Feeding Plan Recommended feeding plan Limit latching to one side per session for up to 20 minutes prior to supplementing;Pump/hand express minimum 8 times in 24 hours including nights. Pump for 15-25 min.;Frequent aolh-du-tjwf time with parents OTHER $ SERVICES Consult Chau Garcia RNC-MN, IBCLC Pager - [phone] Kelly Garcia RN [facility] 2024-01-17 06:13:53 Problem: Complications of preeclampsia/eclampsia (risk or actual) Goal: Absence of seizure activity Outcome: Progressing as expected Goal: Absence of signs and symptoms of preeclampsia Outcome: Progressing as expected Problem: Falls, Risk of Goal: Absence of falls Outcome: Progressing as expected Problem: Discharge Planning - Goal: Adequate for discharge Outcome: Progressing as expected Goal: Mood stable Outcome: Progressing as expected Problem: Pain Goal: Control of pain at or below patient's documented comfort goal Outcome: Progressing as expected Goal: Reduction in pain sensation Outcome: Progressing as expected Problem: Breast-feeding - Ineffective Goal: Effective breast-feeding Outcome: Progressing as expected Yolanda Wilson RN [facility] 2024-01-16 17:34:25 Problem: Discharge Planning - Antepartum Goal: Absence of seizure activity Outcome: Progressing as expected Goal: Adequate for discharge Outcome: Progressing as expected Goal: Blood pressure within specified parameters Outcome: Progressing as expected Problem: Complications of preeclampsia/eclampsia (risk or actual) Goal: Absence of seizure activity Outcome: Progressing as expected Goal: Absence of signs and symptoms of preeclampsia Outcome: Progressing as expected Problem: Falls, Risk of Goal: Absence of falls Outcome: Progressing as expected Problem: Intrapartum process (including labor pain) Goal: Absence of or reduction of complications of labor Outcome: Progressing as expected Goal: Able to cope with pain Outcome: Progressing as expected Goal: Adequate to move to next level of care Outcome: Progressing as expected Problem: Discharge Planning - Goal: Adequate for discharge Outcome: Progressing as expected Goal: Mood stable Outcome: Progressing as expected Frederick Alicea RN [facility] 2024-01-16 14:28:24 Delivery Date: 01/16/2024 Delivery Time: 1:09 PM DELIVERY BY SECTION Date of Service: : 01/16/2024 at 1:09 PM Admitted for: IOL d/t elevated BP at term, Primary Lower uterine tranverse section with no extension, no BTL, Pfannenstiel, Closed with suture, EBL 600 cc, No complications, Findings: Normal uterus, normal ovaries and fallopian tubes. Delivery Summary [place] Sex: male Weight: 3155 g 1 Minute 5 Minute 10 Minute Totals: 8 9 Primary Indication: The patient was taken to the operating room for a primary section due to: Failed induction of Labor and Chorioamnionitis at 37w1d weeks. Procedures: Primary Lower uterine tranverse section with no extension Specimens Removed: Placenta Clinical Trials: None Surgeon: Valencia Escobar MD Tunnel Kiln Repairer Surgeon: Marii Doll MD OB Faculty: Madi Scott DO Report: Prophylactic antibiotic, Ampicillin 2g, Gentamicin 5mg/kg, and Flagyl 500mg was given before patient was taken to OR. After arrival to the operating room patient was placed in the supine position with left lateral tilt after dosing of epidural anesthesia. Laparotomy A pfannenstiel incision was made through the anterior abdominal wall with #10 scalpel. The incision was extended sharply with the #10 scalpel through the subcutaneous tissue to the level of fascia. The fascia was entered sharply with a #10 scalpel (Pfannenstiel) in the midline and extended in semi-elliptical fashion with Angulo scissor. The underlying muscles were dissected off the overlying fascia by grasping the superior aspect of fascia with two kye clamps and blunt dissection was used along the midline. The fascia was further from rectus muscle with Angulo scissor and/or cautery. In similar fashion, the lower aspect of fascia was also grsaped with two Kye clamps and both blunt and sharp dissection was used to separate fascia from rectus muscle. The rectus muscles were in the midline bluntly with Cesia hemostat. The peritoneum was then entered bluntly. The peritoneal incision was then extended superiorly and inferiorly under direct visualization with care being taken to avoid bladder and bowel. No adhesions were noted. The peritoneal incision was enlarged bluntly by lateral traction from the surgeon's and registered nurse first assistant's hand. Delivery A bladder flap was not developed. A low transverse hysterotomy was made then with #10 scalpel and extended laterally and cephalad with fingers in a low transverse fashion with Manu Perez technique with care being taken to avoid injury to the fetus. The amniotic (membranes) were then entered with spontaneous rupture of membrane, and the amniotic fluid was noted to be clear . The head was delivered manually without aid of vaginal hand. The head was flexed and delivered through the hysterotomy incision in a non-traumatic fashion with aid of fundal pressure applied by the veterinary technician assistant surgeon . The body was delivered with traction on the head along with fundal pressure. After delivery of body-bulb suction was performed from oropharynx and nostril with removal of clear amniotic fluid. Fetus was delivered in cephalic presentation. With delivery the baby, no extension was noted.Delayed cord clamping was performed for 30-60 seconds. Placenta was delivered spontaneously with steady traction on cord and manual separation of placenta from uterine wall. Closure Uterine cavity was cleaned after placental delivery with lap sponge x 2. The hysterotomy was closed in one layer with stitches using 0 chromic with continuous locking stitches. Hemostasis was achieved as needed with electrocautery. The ovaries/tubes/uterine surface were evaluated. They were found to be normal. Fascia was closed with running stitches using 0 vicryl. Hemostasis was checked for and found to be adequate. The subcutaneous tissue was irrigated and hemostasis was achieved where needed with electrocautery. Subcutaneous layer was closed with 0 vicryl. The skin was then closed with subcutaneous stitches using 3-0 Monocryl sutures. The incision was cleaned and covered with a compression bandage and the procedure considered to be complete at this time. Intraoperative Complications: None EBL: 600 Uterotonics: 30U of Pitocin Disposition: The patient tolerated the procedure well. She was recovered in Obstetric PACU for close monitoring in stable condition, with a contracted uterus and normal transvaginal bleeding. The infant was sent to NICU. A segment of the cord was obtained for umbilical cord gases. Cord blood gas was not available at time of operative note entered. Please see Epic for update. The placenta was not sent to pathology. Valencia Escobar MD Associated attestation - Madi Scott DO - 01/16/2024 3:13 PM CDT Attending addendum: I was present for the procedure and I agree with the operative note. Madi Scott DO OBSTETRICS & GYNECOLOGY [facility] 2024-01-16 01:58:49 Intrapartum Progress Note 01/16/2024 1:58 AM Subjective: Patient complains of painful contractions. Objective: Vitals last 24 hours: Temp: [36.8 ?C (98.2 ?F)-38.2 ?C (100.7 ?F)] 37.9 ?C (100.2 ?F) Pulse: [73-114] 107 Resp: [17-19] 17 BP: (111-161)/(59-103) 144/86 Intake/Output : No intake/output data recorded. I/O last 3 completed shifts: In: 766.9 [I.V.:13.7] Out: - Assessment Active movement: Yes Mode: EFM Uterine Activity: Mode: Pajaros Contractions (number / 10 minute): 6 Contraction duration (seconds): 50-70 Contraction quality: Mild Resting tone: Soft, Palpation Membrane Status Membrane status: Artificial (Simultaneous filing. User may not have seen previous data.) Rupture date: 01/15/24 Rupture time: 1630 Amniotic fluid color: Clear Cervical Exam 5 75 % / -3 Assessment/Plan: Cj Caceres is a 18 year old at 37w1d OB Assessment: IOL, PreE OB Plan: s/p FB, Pit@1500 Additional Comments/Detail: head still high in pelvis. Pt feeling contraction pain, will page anesthesia and reassess for internal monitor placement. Ripening Agent: Oxytocin Intrapartum Plan: Continue active labor management Susan Sena MD [facility] 2024-01-15 19:41:47 Problem: Intrapartum process (including labor pain) Goal: Absence of or reduction of complications of labor 01/15/20241940 by Neida Mackenzie RN Outcome: Progressing as expected 01/15/20241940 by Neida Mackenzie RN Outcome: Progressing as expected Problem: Intrapartum process (including labor pain) Goal: Able to cope with pain 01/15/20241940 by Neida Mackenzie RN Outcome: Progressing as expected 01/15/20241940 by Neida Mackenzie RN Outcome: Progressing as expected Problem: Intrapartum process (including labor pain) Goal: Adequate to move to next level of care 01/15/20241940 by Neida Mackenzie RN Outcome: Progressing as expected 01/15/20241940 by Neida Mackenzie RN Outcome: Progressing as expected Problem: Complications of preeclampsia/eclampsia (risk or actual) Goal: Absence of signs and symptoms of preeclampsia 01/15/20241940 by Neida Mackenzie RN Outcome: Progressing as expected Problem: Discharge Planning - Antepartum Goal: Blood pressure within specified parameters 01/15/20241940 by Neida Mackenzie RN Outcome: Progressing as expected 01/15/20241940 by Neida Mackenzie RN Outcome: Progressing as expected Neida Mackenzie RN [facility] 2024-01-15 14:15:11 Name/ MRN / Age / Gender: Cj Caceres, [id number] 18 year old female BMI: Estimated body mass index is 40.19 kg/m? as calculated from the following: Height as of this encounter: 1.549 m (5' 1"). Weight as of this encounter: 96.5 kg (212 lb 11.2 oz). Allergies: Patient has no known allergies. Last Vitals: BP Readings from Last 1 Encounters: 01/15/24 113/66 Pulse Readings from Last 1 Encounters: 01/15/24 81 SpO2 Readings from Last 1 Encounters: 01/15/24 96% Date of Surgery: 01/15/2024 Surgeon: * No surgeons listed * Procedure: CENTRAL NEURAXIAL BLOCK OR Location: [place] ANESTHESIA OUT OF OR - OR LOCATION Anesthesia Preop Eval (physical exam) Anesthesia Preop: Chart Review and Eipb-[id number] [facility] Communication: Cj Caceres is a 18 year old female with a history as below No past medical history on file. NPO Status Verified Anesthesia History Anesthesia History Negative Previous Anesthetics/Airways Cardiovascular Negative Cardiac ROS Comments: BP Readings from Last 4 Encounters: 01/15/24 : 113/66 01/13/24 : (!) 144/90 12/30/23 : 138/82 12/16/23 : 128/89 Pulmonary Negative Pulmonary ROS Comments: Tobacco Use: Low Risk (01/13/2024) Patient History Smoking Tobacco Use: Never Smokeless Tobacco Use: Never Passive Exposure: Not on file Neuro/Musculoskeletal Negative Neuro/Musculosketal ROS GI/Hepatic Negative GI/Hepatic ROS Hematology Negative Hematology ROS Comments: HGB Date Value 01/13/2024 10.8 g/dL (L) 04/28/2011 12.1 G/DL 01/13/24 1612 PLT 265 Renal Negative Renal ROS Comments: CREATININE Date Value 01/13/2024 0.54 mg/dL 04/28/2011 0.40 MG/DL K (MMOL/L) Date Value 04/28/2011 5.1 (H) Skin (+) Current IV access and 18g Endo/Other Negative Endo/Other ROS Comments: No results found for: "[id number]" Other 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 Comments: Cj Caceres is a 18 year old at [...] on 11/05/23 - [facility] - Presentation on admission: cephalic, DVP6.5cm, EFW 3394g (86%ile) - anterior placenta - FHT reactive - Normal anatomy scan Pediatric Preoperative Medication Instructions Continue taking all prescribed medications except: RICHMOND inhibitors, ARBs, diuretics, all oral diabetes medications Anticoagulant Therapy: Defer to surgeons Insulin: Take 1/2 dose the night prior to surgery. Hold on DOS. Phentermine: Alert [facility] anesthesiologist SGLT2 Inhibitors: "gliflozins" to be held for 3 days prior to elective surgeries GLP1 Agonosit: stop 7 days prior to surgery MAC Cases: Continue taking RICHMOND inhibitors and ARBs ASA Classification ASA: 3 Labs: Chemistry - CBC 01/13/2024 - - - - 12.31 (H) 10.8 (L) 265 - - 0.54 33.2 (L) eGFR: 136.2 Date: 01/13/2024 ANC: 9.65 (H) Date: 01/13/2024 LFTs 01/13/2024 Coags AST: 21 AP: - Prot: - Ca: - PT: - Date: - ALT: 13 T Juan: - Alb: - PTT: - Date: - PO4: - Date: - INR: - Date: - Cardiac Endocrine & other pBNP: - Date: - A1C: - Date: - Trop I: - Date: - POCT A1C: - Date: - CK: - Date: - TSH: - Date: - CKMB: - Date: - FT4: - Date: - LDL: - Date: - Lact: - Date: - Procal: - Date: - Respiratory -|-|-|-|- D-dimer: - ABG Date: - Date: - Miscellaneous Type and Screen: A POSITIVE Antibody: Negative Date: 01/13/2024 POCT : Positive Date: 06/06/2023 Current Medications: No outpatient medications have been marked as taking for the 01/13/24 encounter (Hospital Encounter). Previous Surgeries: No past surgical history on file. 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 I discussed the anesthetic plan with the patient and/or family, including the risks, benefits, and alternatives. I answered all questions and verified consent, and ID. The patient/family agrees with the plan and desires to proceed with the procedure. AN-ANESTHESIOLOGY ANESTHESIOLOGIST [facility] 2024-01-15 08:23:14 Problem: Discharge Planning - Antepartum Goal: Absence of seizure activity Outcome: Progressing as expected Goal: Adequate for discharge Outcome: Progressing as expected Goal: Blood pressure within specified parameters Outcome: Progressing as expected Problem: Complications of preeclampsia/eclampsia (risk or actual) Goal: Absence of seizure activity Outcome: Progressing as expected Goal: Absence of signs and symptoms of preeclampsia Outcome: Progressing as expected Problem: Falls, Risk of Goal: Absence of falls Outcome: Progressing as expected Problem: Intrapartum process (including labor pain) Goal: Absence of or reduction of complications of labor Outcome: Progressing as expected Goal: Able to cope with pain Outcome: Progressing as expected Goal: Adequate to move to next level of care Outcome: Progressing as expected Lissy Dao RN [facility] 2024-01-14 20:48:53 Problem: Discharge Planning - Antepartum Goal: Absence of seizure activity Outcome: Progressing as expected Goal: Adequate for discharge Outcome: Progressing as expected Goal: Blood pressure within specified parameters Outcome: Progressing as expected Problem: Complications of preeclampsia/eclampsia (risk or actual) Goal: Absence of seizure activity Outcome: Progressing as expected Goal: Absence of signs and symptoms of preeclampsia Outcome: Progressing as expected Problem: Falls, Risk of Goal: Absence of falls Outcome: Progressing as expected Polo Guajardo RN [facility] 2024-01-14 17:53:19 Problem: Discharge Planning - Antepartum Goal: Absence of seizure activity Outcome: Progressing as expected Goal: Adequate for discharge Outcome: Progressing as expected Goal: Blood pressure within specified parameters Outcome: Progressing as expected Problem: Complications of preeclampsia/eclampsia (risk or actual) Goal: Absence of seizure activity Outcome: Progressing as expected Goal: Absence of signs and symptoms of preeclampsia Outcome: Progressing as expected Problem: Falls, Risk of Goal: Absence of falls Outcome: Progressing as expected Alayna Rhodes RN [facility] 2024-01-14 04:03:57 Problem: Discharge Planning - Antepartum Goal: Absence of seizure activity Outcome: Progressing as expected Goal: Adequate for discharge Outcome: Progressing as expected Goal: Blood pressure within specified parameters Outcome: Progressing as expected Problem: Complications of preeclampsia/eclampsia (risk or actual) Goal: Absence of seizure activity Outcome: Progressing as expected Goal: Absence of signs and symptoms of preeclampsia Outcome: Progressing as expected Problem: Falls, Risk of Goal: Absence of falls Outcome: Progressing as expected Aminata Jason RN [facility] 2023-11-06 12:52:00 Pt informed of results and need for 3 hr gtt. Lab appt made for 11/06 and informed to be fasting, verbalized understanding. T Neida Antonio LVN [facility] 2023-11-06 08:30:11 Called pt, no answer. No vm box set up. Shruthi Herr RN 11/06/23 8:30 AM [facility] 2023-11-06 06:48:47 Please call patient and schedule 3 hour GTT [facility] 2023-06-16 15:46:37 Copied from [facility] #[id number]. Topic: Clinical - Order >> Jun 16, 2023 3:44 PM Patient Weekend Anchor wrote: Patient requesting referral for US Please contact pt at [phone] (home) Maritza Moses [facility]
[2024-08-09] MEDS ORDERED: BUPIVACAINE 0.5% PF 10 ML VIAL ONE (01:07)
[2024-08-09] MEDS ORDERED: CEFTRIAXONE 1000 MG/VIAL ONE (01:07)
[2024-08-09] MEDS ORDERED: WATER FOR INJ,STERILE 10 ML ONE (01:07)
--- NOTE | 2024-08-09 01:17 | ER ---
Nurse's Notes [facility] Name: Alvaro Caceres Age: 19 yrs Sex: Female : 2005 Arrival Date: 08/09/2024 Time: 00:42 Bed 17 Private MD: Diagnosis: Acute dental pain tooth #19 , acute gingival infection, Presentation: 08/09 00:47 Chief complaint: Patient states: TOOTH ACHE ON LEFT SIDE OF UPPER AND LOWER JAW. TOOK ha1 TYLENOL AND NOT HELPING THE PAIN. 22 WEEKS . 00:47 Coronavirus screen: Client denies travel out of the [place] in the last 14 days. Ebola ha1 Screen: No symptoms or risks identified at this time. Initial Sepsis Screen: Does the patient meet any 2 criteria? No. Patient's initial sepsis screen is negative. Does the patient have a suspected source of infection? No. Patient's initial sepsis screen is negative. Risk Assessment: Do you want to hurt yourself or someone else? Patient reports no desire to harm self or others. Onset of symptoms was August 09, 2024. 00:47 Method Of Arrival: Ambulatory ha1 00:47 Acuity: JESSICA 4 ha1 Triage Assessment: 01:01 General: Appears uncomfortable, Behavior is cooperative. Pain: Also complains of ha1 inability to concentrate. Pain: Complains of pain in left jaw Pain currently is 10 out of 10 on a pain scale. Quality of pain is described as throbbing, Pain began 1 day ago. EENT: Reports TOOTH ACHE . Neuro: Level of Consciousness is awake, alert, obeys commands, Oriented to person, place, time, situation. Cardiovascular: Capillary refill < 3 seconds Patient's skin is warm and dry. Respiratory: Airway is patent Respiratory effort is even, unlabored, Respiratory pattern is regular, symmetrical. Historical: - Allergies: 01:01 No Known Allergies; ha1 - PMHx: 01:01 Asthma; ha1 - PSHx: 01:01 section; ha1 - Immunization history:: Adult Immunizations up to date. - Infectious Disease History:: Denies. - Social history:: Smoking status: Patient denies any tobacco usage or history of. - Family history:: not pertinent. Screenin:05 [facility] ED Fall Risk Assessment (Adult) History of falling in the last 3 months, ha1 including since admission No falls in past 3 months (0 pts) Confusion or Disorientation No (0 pts) Intoxicated or Sedated No (0 pts) Impaired Gait No (0 pts) Mobility Assist Device Used No (0 pt) Altered Elimination No (0 pt) Score/Fall Risk Level 0 - 2 = Low Risk Oriented to surroundings, Maintained a safe environment, Hourly rounding (assess needs \T\ fall precautionary measures) done. Abuse screen: Denies threats or abuse. Denies injuries from another. Nutritional screening: No deficits noted. Tuberculosis screening: No symptoms or risk factors identified. Assessment: 01:30 Reassessment: Patient appears in no apparent distress at this time. Patient and/or jb4 family updated on plan of care and expected duration. Pain level reassessed. Patient is alert, oriented x 3, equal unlabored respirations, skin warm/dry/pink. Vital Signs: 00:47 BP 136 / 90; Pulse 80; Resp 17 S; Temp 98.1(O); Pulse Ox 100% on R/A; Weight 81.65 kg; ha1 Height 5 ft. 1 in. ; Pain 10/10; 00:47 Body Mass Index 34.01 (81.65 kg, 154.94 cm) ha1 00:47 Pain Scale: Adult ha1 [place] Coma Score: 05:31 Eye Response: spontaneous(4). Motor Response: obeys commands(6). Verbal Response: sp4 oriented(5). Total: 15. 05:33 Eye Response: spontaneous(4). Motor Response: obeys commands(6). Verbal Response: sp4 oriented(5). Total: 15. ED Course: 00:45 Patient arrived in ED. gm2 00:46 Archie Arce MD is Attending Physician. sp4 01:01 Triage completed. ha1 01:05 Patient has correct armband on for positive identification. Bed in low position. Call ha1 light in reach. Side rails up X 1. 01:30 Provided Education on: discharge instructions.. jb4 01:30 No provider procedures requiring assistance completed. Patient did not have IV access jb4 during this emergency room visit. Administered Medications: 01:22 Drug: Bupivacaine Infiltration (0.5 %) 10 ml 10 ml Infiltration once {Note: jb4 administered by ER physician..} Volume: 10 ml; Route: Infiltration; 01:23 Drug: Rocephin (cefTRIAXone) IM 1 grams IM once Route: IM; Site: right gluteus; jb4 01:30 Follow up: Response: No adverse reaction jb4 Medication: 01:30 VIS not applicable for this client. jb4 Outcome: 01:16 Discharge ordered by . sp4 01:30 Discharged to home ambulatory, with family, jb4 01:30 Condition: stable 01:30 Discharge instructions given to patient, Instructed on discharge instructions, follow up and referral plans. medication usage, Demonstrated understanding of instructions, follow-up care, medications, Prescriptions given X 1, 01:45 Patient left the ED. jb4 Signatures: Bebo Taylor RN RN jb4 Olesya Valencia RN RN ha1 Archie Arce MD MD sp4 Adore Berman 2
--- NOTE | 2024-08-09 01:17 | EDPHYS ---
Physician Documentation [facility] Name: Alvaro Caceres Age: 19 yrs Sex: Female : 2005 Arrival Date: 08/09/2024 Time: 00:42 Bed 17 Private MD: ED Physician Archie Arce HPI: 08/09 00:46 This 19 yrs old Female presents to ER via Unassigned with complaints of sp4 Headache, Mouth Problem. 05:31 19 -year-old female presents with complaint of acute toothache tooth #18 . sp4 05:34 Patient is -0-0-1 at 22 weeks EGA. sp4 Historical: - Allergies: 01:01 No Known Allergies; ha1 - PMHx: 01:01 Asthma; ha1 - PSHx: 01:01 section; ha1 - Immunization history:: Adult Immunizations up to date. - Infectious Disease History:: Denies. - Social history:: Smoking status: Patient denies any tobacco usage or history of. - Family history:: not pertinent. ROS: 05:31 Constitutional: Negative for fever, chills, and weight loss, positive for acute sp4 dental pain tooth #18. 05:31 All other systems are negative, Exam: 05:31 Constitutional: This is a well developed, well nourished patient who is awake, alert, sp4 and in no acute distress. Head/Face: Normocephalic, atraumatic. Eyes: Pupils equal round and reactive to light, extra-ocular motions intact. Lids and lashes normal. Conjunctiva and sclera are not injected. Cornea within normal limits. Periorbital areas with no swelling, redness, or edema. ENT: Nares patent. No nasal discharge, no septal abnormalities noted. Tympanic membranes are normal and external auditory canals are clear. Oropharynx with no redness, swelling, or masses, exudates, or evidence of obstruction, uvula midline. Mucous membranes moist. Neck: Trachea midline, no thyromegaly or masses palpated, and no cervical lymphadenopathy. Supple, full range of motion without nuchal rigidity, or vertebral point tenderness. Chest/axilla: Normal chest wall appearance and motion. Nontender with no deformity. No lesions are appreciated. Cardiovascular: Regular rate and rhythm with a normal S1 and S2. No gallops, murmurs, or rubs. Normal PMI, no JVD. No pulse deficits. Respiratory: Lungs have equal breath sounds bilaterally, clear to auscultation and percussion. No rales, rhonchi or wheezes noted. No increased work of breathing, no retractions or nasal flaring. Abdomen/GI: Soft, with normal bowel sounds. No distension or tympany. No guarding or rebound. No evidence of tenderness throughout. Back: No spinal tenderness. No costovertebral tenderness. Skin: Warm, dry with normal turgor. Normal color with no rashes, no lesions, and no evidence of cellulitis. MS/ Extremity: Pulses equal, no cyanosis. Neurovascular intact. Full, normal range of motion. Neuro: Awake and alert, GCS 15, oriented to person, place, time, and situation. Cranial nerves II-XII grossly intact. Motor strength 5/5 in all extremities. Sensory grossly intact. Psych: Awake, alert, with orientation to person, place and time. Behavior, mood, and affect are within normal limits Vital Signs: 00:47 BP 136 / 90; Pulse 80; Resp 17 S; Temp 98.1(O); Pulse Ox 100% on R/A; Weight 81.65 kg; ha1 Height 5 ft. 1 in. ; Pain 10/10; 00:47 Body Mass Index 34.01 (81.65 kg, 154.94 cm) [facility] 00:47 Pain Scale: Adult ha1 [place] Coma Score: 05:31 Eye Response: spontaneous(4). Motor Response: obeys commands(6). Verbal Response: sp4 oriented(5). Total: 15. 05:33 Eye Response: spontaneous(4). Motor Response: obeys commands(6). Verbal Response: sp4 oriented(5). Total: 15. Procedures: 05:34 Performed Dental block with Marcaine 0.5%. Dental block performed left lower gingiva sp4 -left inferior alveolar nerve block, Marcaine 0.5% injected total of 5 mL. MDM: 01:16 Medical Screening Exam initiated sp4 05:33 Differential diagnosis: cluster headache, otitis, sinusitis, tension headache, sp4 vasomotor headache. Data reviewed: vital signs, nurses notes. 05:34 ED course: Patient was advised to see the dentist PRINCESS for dental repair tooth #18. sp4 Today there is no drainable abscess. Pain resolved after dental block with Marcaine. Administered Medications: 01:22 Drug: Bupivacaine Infiltration (0.5 %) 10 ml 10 ml Infiltration once {Note: jb4 administered by ER physician..} Volume: 10 ml; Route: Infiltration; 01:23 Drug: Rocephin (cefTRIAXone) IM 1 grams IM once Route: IM; Site: right gluteus; jb4 01:30 Follow up: Response: No adverse reaction jb4 Disposition Summary: 08/09/24 01:16 Discharge Ordered Notes: Location: Home sp4 Problem: new sp4 Symptoms: have improved sp4 Condition: Stable sp4 Diagnosis - Acute dental pain tooth #19 , acute gingival infection, sp4 Followup: sp4 - With: Private Physician - When: 7 - 10 days - Reason: Recheck today's complaints Discharge Instructions: - Discharge Summary Sheet sp4 - Dental Pain, [id number] sp4 Forms: - Family Work Release jb4 - Patient Portal Instructions sp4 Prescriptions: - Cephalexin 500 mg Oral Capsule - take 1 capsule ORAL route every 12 hours for 10 days; 20 capsule; Refills: 0, sp4 Product Selection Permitted Signatures: Bebo Taylor RN RN jb4 Olesya Valencia RN RN ha1 Archie Arce MD MD sp4
[2024-08-09 01:50] VITALS: BP 136/90; TEMP 98.1; O2SAT 100
== END 2024-08-09 01:45 | disposition home or self-care (01) ==
LOC: ER 00:42
DX: O99.612 Diseases of the digestive system complicating pregnancy, second trimester (principal); K05.00 Acute gingivitis, plaque induced; Z3A.22 22 weeks gestation of pregnancy
CPT/HCPCS: 96372; 99284; J0696